=== PATIENT | male | born 1985 | race Caucasian/White ===

== ENCOUNTER 2018-04-08 08:26 | Emergency (ER) | payer MEDICARE, MEDICAID ==
[~2018-04-08] VITALS: Ht 188 cm; Wt 87.1 kg
[~2018-04-08 08:26] MED LIST: CHLO10MO PO; DIPH-423 PO; HYDR28.33 TP; IBUP-1051 PO
[2018-04-08 08:30] VITALS: BP 130/86
[2018-04-08] MEDS ORDERED: HYDROcodone/acetaminophen 10/325mg tab PO ONE (09:35)
[2018-04-08] MEDS ORDERED: TRAM50TA2 PO (09:55)
== END 2018-04-08 11:06 | disposition home or self-care (01) ==
LOC: ER 08:27
DX: S62.011A Displaced fracture of distal pole of navicular [scaphoid] bone of right wrist, initial encounter for closed fracture (principal); S62.316A Displaced fracture of base of fifth metacarpal bone, right hand, initial encounter for closed fracture; J45.909 Unspecified asthma, uncomplicated; K21.9 Gastro-esophageal reflux disease without esophagitis; F12.90 Cannabis use, unspecified, uncomplicated; F15.90 Other stimulant use, unspecified, uncomplicated; Z56.0 Unemployment, unspecified; Z59.0 Homelessness; Z98.890 Other specified postprocedural states; Z88.1 Allergy status to other antibiotic agents; Z88.5 Allergy status to narcotic agent; Y04.0XXA Assault by unarmed brawl or fight, initial encounter; Y93.89 Activity, other specified; Y92.89 Other specified places as the place of occurrence of the external cause; Y99.9 Unspecified external cause status
CPT/HCPCS: 29125; 73110; 73130; 99284

== ENCOUNTER 2018-04-18 13:01 | Outpatient (CLI) | payer MEDICARE, MEDICAID ==
[2018-04-18 12:58] VITALS: BP 121/74
[~2018-04-18 13:01] MED LIST changes: +TRAM50TA2 PO
== END 2018-04-18 13:53 | disposition home or self-care (01) ==
LOC: ORTHO 13:01
PROVIDERS: ATTEND Nurse Practitioner Family
DX: S62.011A Displaced fracture of distal pole of navicular [scaphoid] bone of right wrist, initial encounter for closed fracture (principal); S62.316A Displaced fracture of base of fifth metacarpal bone, right hand, initial encounter for closed fracture; J45.909 Unspecified asthma, uncomplicated; F17.200 Nicotine dependence, unspecified, uncomplicated; Z98.890 Other specified postprocedural states; Z88.1 Allergy status to other antibiotic agents; Z88.5 Allergy status to narcotic agent; Y04.0XXA Assault by unarmed brawl or fight, initial encounter; Y93.89 Activity, other specified; Y92.89 Other specified places as the place of occurrence of the external cause; Y99.8 Other external cause status
CPT/HCPCS: 73110; 99213; A4590

== ENCOUNTER 2018-05-09 14:21 | Outpatient (CLI) | payer MEDICARE, MEDICAID ==
[2018-05-09 14:20] VITALS: BP 129/73
== END 2018-05-09 14:52 | disposition home or self-care (01) ==
LOC: ORTHO 14:21
PROVIDERS: ATTEND Nurse Practitioner Family
DX: S62.011D Displaced fracture of distal pole of navicular [scaphoid] bone of right wrist, subsequent encounter for fracture with routine healing (principal); J45.909 Unspecified asthma, uncomplicated; K21.9 Gastro-esophageal reflux disease without esophagitis; G20 Parkinson's disease; F17.200 Nicotine dependence, unspecified, uncomplicated; Z88.1 Allergy status to other antibiotic agents; Z88.5 Allergy status to narcotic agent
CPT/HCPCS: 73110; G0463; 99213

== ENCOUNTER 2018-05-30 10:48 | Outpatient (CLI) | payer MEDICARE, MEDICAID ==
[~2018-05-30 10:48] MED LIST changes: -TRAM50TA2 PO
[2018-05-30 10:55] VITALS: BP 130/86
== END 2018-05-30 11:35 | disposition home or self-care (01) ==
LOC: ORTHO 10:48
PROVIDERS: ATTEND Nurse Practitioner Family
DX: S62.011 Displaced fracture of distal pole of navicular [scaphoid] bone of right wrist (principal); J45.909 Unspecified asthma, uncomplicated; K21.9 Gastro-esophageal reflux disease without esophagitis; G20 Parkinson's disease; F17.200 Nicotine dependence, unspecified, uncomplicated; Z88.1 Allergy status to other antibiotic agents; Z88.5 Allergy status to narcotic agent; Z59.0 Homelessness; Z56.0 Unemployment, unspecified; F12.90 Cannabis use, unspecified, uncomplicated; F17.210 Nicotine dependence, cigarettes, uncomplicated; Y04.0XXD Assault by unarmed brawl or fight, subsequent encounter
CPT/HCPCS: 73110; 99213

== ENCOUNTER 2018-06-27 12:58 | Outpatient (CLI) | payer MEDICARE, MEDICAID ==
[2018-06-27 12:57] VITALS: BP 130/79
== END 2018-06-27 13:32 | disposition home or self-care (01) ==
LOC: ORTHO 12:58
PROVIDERS: ATTEND Nurse Practitioner Family
DX: S62.011 Displaced fracture of distal pole of navicular [scaphoid] bone of right wrist (principal); J45.909 Unspecified asthma, uncomplicated; G40.89 Other seizures; G20 Parkinson's disease; K21.9 Gastro-esophageal reflux disease without esophagitis; F41.8 Other specified anxiety disorders; F17.210 Nicotine dependence, cigarettes, uncomplicated; Z88.1 Allergy status to other antibiotic agents; Z88.5 Allergy status to narcotic agent; Y04.0XXD Assault by unarmed brawl or fight, subsequent encounter
CPT/HCPCS: 99213

== ENCOUNTER 2018-08-21 15:04 | Outpatient (CLI) | payer MEDICARE, MEDICAID | END 2018-08-21 16:15 | disposition home or self-care (01) | LOC: ORTHO 15:04 | PROVIDERS: ATTEND Orthopaedic Surgery | DX: S62.011 Displaced fracture of distal pole of navicular [scaphoid] bone of right wrist (principal); X58.XXXD Exposure to other specified factors, subsequent encounter | CPT/HCPCS: 73110; 99213 ==

== ENCOUNTER 2018-10-20 12:45 | Emergency (ER) | payer MEDICARE, MEDICAID ==
[~2018-10-20] VITALS: Ht 188 cm; Wt 72.0 kg
[2018-10-20 13:04] VITALS: BP 118/67
== END 2018-10-20 15:27 | disposition home or self-care (01) ==
LOC: ER 12:45
DX: S21.119A Laceration without foreign body of unspecified front wall of thorax without penetration into thoracic cavity, initial encounter (principal); J45.909 Unspecified asthma, uncomplicated; K21.9 Gastro-esophageal reflux disease without esophagitis; F41.9 Anxiety disorder, unspecified; F32.9 Major depressive disorder, single episode, unspecified; F20.9 Schizophrenia, unspecified; F12.90 Cannabis use, unspecified, uncomplicated; Z86.14 Personal history of Methicillin resistant Staphylococcus aureus infection; Z98.890 Other specified postprocedural states; Z88.5 Allergy status to narcotic agent; Z88.1 Allergy status to other antibiotic agents; Z79.899 Other long term (current) drug therapy; Z59.0 Homelessness; Z56.0 Unemployment, unspecified; X58.XXXA Exposure to other specified factors, initial encounter; Y93.89 Activity, other specified; Y92.89 Other specified places as the place of occurrence of the external cause; Y99.8 Other external cause status
CPT/HCPCS: 71046; 99283

== ENCOUNTER 2019-08-01 17:20 | Emergency (ER) | payer MEDICARE, MEDICAID ==
[~2019-08-01] VITALS: Ht 188 cm; Wt 71.5 kg
[2019-08-01 19:00] LABS: BASOPHILS # (AUTO) 0.1 X10'3 (0-0.2); BASOPHILS % (AUTO) 0.9 % (0-1); EOSINOPHILS # (AUTO) 0.2 X10'3 (0-0.9); HEMATOCRIT 47.8 % (42.0-52.0); HEMOGLOBIN 16.2 g/dl (14.0-17.9); LYMPHOCYTES # (AUTO) 3.2 X10'3 (1.1-4.8); LYMPHOCYTES % (AUTO) 27.8 % (21-51); MEAN CORPUSCULAR HEMOGLOBIN 32.3 PG (27.0-31.0); MEAN CORPUSCULAR HGB CONC 33.9 g/dL (33.0-36.5); MEAN CORPUSCULAR VOLUME 95.3 FL (78-98); MEAN PLATELET VOLUME 6.8 FL (7.4-10.4); MONOCYTES # (AUTO) 1.2 X10'3 (0-0.9); MONOCYTES % (AUTO) 10.2 % (2-12); NEUTROPHILS # (AUTO) 6.8 X10'3 (1.8-7.7); NEUTROPHILS % (AUTO) 59.1 % (42-75); PLATELET COUNT 413 X10'3 (140-440); RED BLOOD COUNT 5.02 X10'6 (4.70-6.10); RED CELL DISTRIBUTION WIDTH 13.4 % (11.5-14.5); WHITE BLOOD COUNT 11.6 X10'3 (4.5-11.0)
[2019-08-01 19:16] LABS: ALANINE AMINOTRANSFERASE 32 U/L (12-78); ALBUMIN 4.6 G/DL (3.4-5.0); ALKALINE PHOSPHATASE 112 IU/L (46-116); ANION GAP 10 (8-16); ASPARTATE AMINO TRANSFERASE 34 U/L (10-37); BILIRUBIN,TOTAL 0.3 MG/DL (0.1-1.0); BLOOD UREA NITROGEN 41 MG/DL (7-18); BUN/CREATININE RATIO 23.6 (5.4-32.0); CALCIUM 9.5 MG/DL (8.5-10.1); CHLORIDE 99 MMOL/L (99-107); CREATININE 1.74 MG/DL (0.60-1.10); GLUCOSE 114 MG/DL (70-104); POTASSIUM 3.9 MMOL/L (3.5-5.1); SODIUM 133 MMOL/L (135-145); TOTAL CARBON DIOXIDE 23.8 MMOL/L (24-32); eGFR 45 ML/MIN
[2019-08-01 19:17] LABS: ETHANOL < 0.010 GM/DL (0.0-0.010)
[2019-08-01] MEDS ORDERED: normal saline 1000ML IV soln IVB ONE ×2 (19:25→19:40)
[2019-08-01 20:15] LABS: URINE AMPHETAMINE SCREEN POSITIVE (Neg); URINE BARBITUATE SCREEN NEGATIVE (Neg); URINE BENZODIAZEPINES SCREEN NEGATIVE (Neg); URINE CANNABINOID SCREEN POSITIVE (Neg); URINE COCAINE SCREEN NEGATIVE (Neg); URINE METHADONE SCREEN NEGATIVE (Neg); URINE OPIATE SCREEN NEGATIVE (Neg); URINE PHENCYCLIDINE SCREEN NEGATIVE (Neg)
[2019-08-01] MEDS ORDERED: NO HOME MEDS (20:22)
--- NOTE | 2019-08-01 20:25 | NUR ---
pt packet faxed to [facility]
--- NOTE | 2019-08-01 21:04 | NUR ---
Patient resting in bed. No apparent s/s of distress noted. Awaiting evaluation by [facility]
[2019-08-01] MEDS ORDERED: nicotine 21mg patch - 24 hr TD ONE (22:10)
--- NOTE | 2019-08-01 22:23 | NUR ---
Informed by [facility] that patient will be placed on 5150 hold. Patient currently resting in bed after eating another snack and having nicotine patch placed.
--- NOTE | 2019-08-01 23:30 | NUR ---
Patient appears to be resting comfortably. No apparent s/s of distress noted
--- NOTE | 2019-08-02 01:00 | NUR ---
Pt appears to be resting comfortably. No apparent s/s of distress noted
--- NOTE | 2019-08-02 02:59 | NUR ---
Pt appears to be resting comfortably. No apparent s/s of distress noted
--- NOTE | 2019-08-02 06:08 | NUR ---
Pt appears to be resting comfortably. No apparent s/s of distress noted
--- NOTE | 2019-08-02 06:19 | NUR ---
asleep latyinh on his right side rspirations unlabored
--- NOTE | 2019-08-02 07:07 | NUR ---
patient laying on his back sleeping
--- NOTE | 2019-08-02 07:52 | NUR ---
is up and eating breakast
--- NOTE | 2019-08-02 08:06 | NUR ---
patient using restroom closet to bed 26
--- NOTE | 2019-08-02 08:12 | NUR ---
patient is back in bed
[2019-08-02] MEDS: nicotine 21mg patch - 24 hr TD SCH (09:01)
--- NOTE | 2019-08-02 09:02 | NUR ---
laying in bed awake
--- NOTE | 2019-08-02 09:06 | NUR ---
primary RN was sent on a rest break. Pt is asking for a cigarette, he was advised that this is a no smoking hospital.
--- NOTE | 2019-08-02 09:22 | NUR ---
new nicotine patch placed old one removed
--- NOTE | 2019-08-02 10:01 | NUR ---
patient sleeping on left side
--- NOTE | 2019-08-02 11:01 | NUR ---
patient using the restroom
--- NOTE | 2019-08-02 12:04 | NUR ---
asleep on his left side
--- NOTE | 2019-08-02 14:06 | NUR ---
eating saltine crackers in bed
[2019-08-02] MEDS ORDERED: LORazepam 2 mg/ml vial IM ONE (14:25)
--- NOTE | 2019-08-02 14:35 | NUR ---
About 5-10 minutes ago patient became agitated due to the fact that he is not allowed to have his cell phone. Security was called for standby and Rachel STONE was called who ordered 2mg Ativan IM. Secnic and the charge Nurse Leida came. Leida RN said have the Ativan on hold give it if the patient starts acting up again. Patient has calmed down or is not yelling anymore. I notified the [facility] mental health worker that patient was making homicidial statement, to which he let me know he was aware he has made these statements.
--- NOTE | 2019-08-02 14:43 | NUR ---
Patient took his wrist band off and said, "I'm taking my wristband off cause I don't want it." I put his wristband in his chart and tapped it to the front.
--- NOTE | 2019-08-02 15:09 | NUR ---
Patient resting in bed said to wake him up for dinner.
--- NOTE | 2019-08-02 15:15 | NUR ---
Patient willing to take ativan that was ordered for him. Patient let me give ativan shot to him.
--- NOTE | 2019-08-02 16:31 | NUR ---
patient is sleeping laying on back
--- NOTE | 2019-08-02 17:04 | NUR ---
Patient is asleep laying on back
--- NOTE | 2019-08-02 18:15 | NUR ---
Patient asleep laying on back
--- NOTE | 2019-08-03 07:52 | NUR ---
PT SITTING UP IN BED EATING BREAKFAST
[2019-08-03] MEDS: nicotine 21mg patch - 24 hr TD SCH (08:00)
[2019-08-03] MEDS ORDERED: LORazepam 1 MG tablet PO ONE (09:25)
[2019-08-03 10:26] VITALS: BP 121/69
== END 2019-08-03 10:28 ==
LOC: ER 17:20
DX: R45.850 Homicidal ideations (principal); N17.9 Acute kidney failure, unspecified; F15.10 Other stimulant abuse, uncomplicated; E86.0 Dehydration; J45.909 Unspecified asthma, uncomplicated; K21.9 Gastro-esophageal reflux disease without esophagitis; F41.9 Anxiety disorder, unspecified; F32.9 Major depressive disorder, single episode, unspecified; F20.9 Schizophrenia, unspecified; F12.90 Cannabis use, unspecified, uncomplicated; Z86.69 Personal history of other diseases of the nervous system and sense organs; Z86.14 Personal history of Methicillin resistant Staphylococcus aureus infection; Z98.890 Other specified postprocedural states; Z59.0 Homelessness; Z56.0 Unemployment, unspecified; Z88.0 Allergy status to penicillin; Z88.5 Allergy status to narcotic agent
CPT/HCPCS: 36415; 80053; 80305; 80320; 85025; 96372; 99285; J2060; J7030

== ENCOUNTER 2019-08-03 09:39 | Inpatient (IN) | payer MEDICARE, MEDICAID ==
[~2019-08-03] VITALS: Ht 188 cm; Wt 72.0 kg
[~2019-08-03 09:39] MED LIST changes: -CHLO10MO PO; -DIPH-423 PO; -HYDR28.33 TP; -IBUP-1051 PO; +NO HOME MEDS
[2019-08-03] MEDS ORDERED: acetaminophen 325mg tablet PO PRN ×2 (10:30)
[2019-08-03] MEDS ORDERED: magnesium hydroxide 30ml (MOM) UD suspension PO PRN (10:30)
[2019-08-03] MEDS ORDERED: diphenhydrAMINE 25mg capsule PO PRN (10:30)
[2019-08-03] MEDS ORDERED: LORazepam 1 MG tablet PO PRN (10:30)
[2019-08-03] MEDS ORDERED: hydrOXYzine 25 MG tablet PO PRN (10:30)
[2019-08-03] MEDS ORDERED: mag hydrox/Alum hydrox/simeth 30ml oral suspension PO PRN (10:30)
[2019-08-03] MEDS ORDERED: loperamide 2mg capsule PO PRN (10:30)
[2019-08-03] MEDS ORDERED: haloperidol 5mg tablet PO PRN (10:30)
[2019-08-03 10:48] VITALS: BP 126/75
--- NOTE | 2019-08-03 12:04 | NUR ---
Pt. transferred from ER to [facility] escorted by security guards and tech. Pt. self-presented to ED stating he wanted to harm "other people". Pt.' toxicology + for amphetamines and THC. Pt. reports using THC and meth 07/30. Pt. reportedly stated, "I have access to a gun. They're gonna push me to the edge!" skin check done and belongings inventoried. Pt. showered. right toe wound documented and photographed and in chart. During interview pt. was restless and easily distracted, asking for food, coffee, and his cell phone and clothes. Pt. explained rules of unit. Pt. is hyperverbal with pressured speech. Pt. states, "I needed to come here because I was losing it. People were out to get me, I was losing my mind, I had to get my thoughts back in order". Pt. doing meth kandi day and drinking ETOH and smoking pot every evening to relax him and so he can sleep. Pt. reports his last drank. a 5ht of whiskey on July 30. Pt. denies withdrawal symptoms, denies hx of black out, DTs. Pt. reports meth cravings. 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 Addendum: 08/03/19 at 1705 by Brigido Mello RN Pt. has medical hx of asthma, Epilepsy, Parkinsons, depression, anxiety, Lupus, DD, intermittent explosive d/o.
[2019-08-03] MEDS ORDERED: diphenhydrAMINE 50 mg/ml inj ONE (13:07)
[2019-08-03] MEDS ORDERED: LORazepam 2 mg/ml vial ONE (13:07)
[2019-08-03] MEDS ORDERED: haloperidol lactate 5mg/ml inj ONE (13:07)
--- NOTE | 2019-08-03 13:42 | NUR ---
B52: Pt requested his clothing. Andrei Sotelo explained his clothing was in the wash and the rest of his belongings locked up. Pt upset that his underwear were new and pt escalating and threatening "The last agueda that touched my stuff I broke his fingers". PT told to go to his room and calm down. PT continues to threaten and scare the patients. Security arrives and pt is out of control. PT refuses to take the oral B52. Pt continues to yell and curse and threaten to blow the building up and "Im a trained fighter." Pt posturing in fighting stance. After much discussion and deescalating attempts pt shown the syringe with IM B52, pt took his oral B52. Pt continues to argue with staff and threaten and demand to go to [facility]. Pt eventually calms down and apologizes.
--- NOTE | 2019-08-03 18:59 | NUR ---
Client arrived on unit at 10:30.
[2019-08-03 20:00] VITALS: BP 109/64
--- NOTE | 2019-08-04 04:29 | NUR ---
Nursing Progress Note: Legal hold: 5150 Client on voluntary DTS/DTO Report received from nurse with use of SBAR: BLADIMIR Holt Why are they here: Pt. transferred from ER to [facility] escorted by security guards and tech. Pt. self-presented to ED stating he wanted to harm "other people". Pt.' toxicology + for amphetamines and THC. Pt. reports using THC and meth 07/30. Pt. reportedly stated, "I have access to a gun. They're gonna push me to the edge!" skin check done and belongings inventoried. Pt. showered. right toe wound documented and photographed and in chart. During interview pt. was restless and easily distracted, asking for food, coffee, and his cell phone and clothes. Pt. explained rules of unit. Pt. is hyperverbal with pressured speech. Pt. states, "I needed to come here because I was losing it. People were out to get me, I was losing my mind, I had to get my thoughts back in order". Pt. doing meth kandi day and drinking ETOH and smoking pot every evening to relax him and so he can sleep. Pt. reports his last drank. a 5ht of whiskey on July 30. Pt. denies withdrawal symptoms, denies hx of black out, DTs. Pt. reports meth cravings. 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 Pt. has medical hx of asthma, Epilepsy, Parkinsons, depression, anxiety, Lupus, DD, intermittent explosive d/o. Assessment What has happened this shift: Patient laying in bed at the beginning of shift; momentarily visible on the unit before returning back to bed. PCT originally reported difficulty waking patient for VS and later in the shift patient cooperative with comic writer for VS. While assessing patient he nodded off to sleep several times during conversation. He denies SI, HI, A/VH. Reports discharge plan is to go back under a bridge. Patient has no schedule medications at this time and no PRNs needed. No outbursts or expressions of agitation this shift. Upon comic writer leaving his room patient stated, "you have a nice ass." No other comments of the sort the remainder of shift. No threats toward others made this shift. S/I, H/I: Denies A/VH: Denies Sleep: Refer to sleep assessment; patient falling asleep between conversation Group attendance: No groups this shift Were meds taken: No scheduled meds this shift, No PRNs needed Any med S/E: N/A Mental Status Exam Appearance: Clean, green unit scrubs Eye contact: Fair Behavior: Cooperative, isolative to self Speech: Soft, clear, steady rate/rhythm Mood: Fatigued Affect: Constricted Thought process: Poverty of thought Thought Content: Sleeping Cognition: A/O Insight: Poor Judgment: Poor Interventions PRN's used: None Therapeutic interventions: Ensured contract for safety, maintained a safe and therapeutic environment, provided clear and simple instructions, provided active listening and positive encouragement, monitored behavior and need for intervention, provided medication and substance abuse education, and maintained Q 15 min safety checks. Restraints/seclusion/emergency medication: N/A Justification of Continued Inpatient Treatment: To ensure stabilization so that patient may d/c safely and decrease possibility of readmission.
[2019-08-04] MEDS: NICOTINE POLACRILEX 2 MG LOZENGE BC PRN ×5 (07:40→19:25)
[2019-08-04 08:00] VITALS: BP 115/61
[2019-08-04] MEDS: nicotine 21mg patch - 24 hr TD SCH (08:00)
[2019-08-04 08:14] LABS: CHOL/HDL RATIO 4.4 (0.00-4.99); CHOLESTEROL 184 MG/DL (0-200); HDL CHOLESTEROL 42 MG/DL (35-60); LDL CHOLESTEROL 115 MG/DL (50-100); TRIGLYCERIDES 165 MG/DL (20-135)
[2019-08-04 08:17] LABS: HEMOGLOBIN A1C 5.5 % (4.5-6.2)
--- NOTE | 2019-08-04 18:27 | NUR ---
Nursing Progress Note: Legal hold: 5150 Client on voluntary DTS/DTO Report received from nurse with use of SBAR: Eileen RN Why are they here: Pt. transferred from ER to [facility] escorted by security guards and tech. Pt. self-presented to ED stating he wanted to harm "other people". Pt.' toxicology + for amphetamines and THC. Pt. reports using THC and meth 07/30. Pt. reportedly stated, "I have access to a gun. They're gonna push me to the edge!" skin check done and belongings inventoried. Pt. showered. right toe wound documented and photographed and in chart. During interview pt. was restless and easily distracted, asking for food, coffee, and his cell phone and clothes. Pt. explained rules of unit. Pt. is hyperverbal with pressured speech. Pt. states, "I needed to come here because I was losing it. People were out to get me, I was losing my mind, I had to get my thoughts back in order". Pt. doing meth kandi day and drinking ETOH and smoking pot every evening to relax him and so he can sleep. Pt. reports his last drank. a 5ht of whiskey on July 30. Pt. denies withdrawal symptoms, denies hx of black out, DTs. Pt. reports meth cravings. 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 Pt. has medical hx of asthma, Epilepsy, Parkinsons, depression, anxiety, Lupus, DD, intermittent explosive d/o. Assessment What has happened this shift: Received pt awake in the garcia. Pt visible most of the day milling around unit interacting with staff and peers. Pt was flirting at times with female pts and female staff and required refocusing. Pt denies suicidal ideation and denies depression. Pt denies auditory hallucinations. Pt just kept talking about leaving in two days. Pt behavior remained appropriate today. S/I, H/I: Denies A/VH: Denies Sleep: no naps today Group attendance: corn hole with peers Were meds taken: No scheduled meds this shift, No PRNs needed Any med S/E: N/A Mental Status Exam Appearance: Clean, green unit scrubs Eye contact: Fair Behavior: Cooperative, isolative to self Speech: Soft, clear, steady rate/rhythm Mood: Fatigued Affect: Constricted Thought process: Poverty of thought Thought Content: on discharge Cognition: A/O Insight: Poor Judgment: Poor Interventions PRN's used: nicotine lozenge Therapeutic interventions: Ensured contract for safety, maintained a safe and therapeutic environment, provided clear and simple instructions, provided active listening and positive encouragement, monitored behavior and need for intervention, provided medication and substance abuse education, and maintained Q 15 min safety checks. Restraints/seclusion/emergency medication: N/A Justification of Continued Inpatient Treatment: To ensure stabilization so that patient may d/c safely and decrease possibility of readmission.
[2019-08-04 20:00] VITALS: BP 104/65
[2019-08-04] MEDS: traZODone 50mg tablet PO PRN (20:25)
--- NOTE | 2019-08-05 00:37 | NUR ---
Nursing Progress Note: Legal hold: 5150 Client on voluntary DTS/DTO Report received from nurse with use of SBAR: BLADIMIR Holt Why are they here: Pt. transferred from ER to [facility] escorted by security guards and tech. Pt. self-presented to ED stating he wanted to harm "other people". Pt.' toxicology + for amphetamines and THC. Pt. reports using THC and meth 07/30. Pt. reportedly stated, "I have access to a gun. They're gonna push me to the edge!" skin check done and belongings inventoried. Pt. showered. right toe wound documented and photographed and in chart. During interview pt. was restless and easily distracted, asking for food, coffee, and his cell phone and clothes. Pt. explained rules of unit. Pt. is hyperverbal with pressured speech. Pt. states, "I needed to come here because I was losing it. People were out to get me, I was losing my mind, I had to get my thoughts back in order". Pt. doing meth kandi day and drinking ETOH and smoking pot every evening to relax him and so he can sleep. Pt. reports his last drank. a 5ht of whiskey on July 30. Pt. denies withdrawal symptoms, denies hx of black out, DTs. Pt. reports meth cravings. 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 Pt. has medical hx of asthma, Epilepsy, Parkinsons, depression, anxiety, Lupus, DD, intermittent explosive d/o. Assessment What has happened this shift: Patient in the garcia at change of shift and requested a shower. After shower pt went to rec room and watched tv till snack and meds. Pt asked for something to help with sleep. Pt given prn Trazodone that was helpful. S/I, H/I: Denies A/VH: Denies Sleep: no naps today Group attendance: corn hole with peers Were meds taken: No scheduled meds this shift, No PRNs needed Any med S/E: N/A Mental Status Exam Appearance: Clean, green unit scrubs Eye contact: Fair Behavior: Cooperative, isolative to self Speech: Soft, clear, steady rate/rhythm Mood: Fatigued Affect: Constricted Thought process: Poverty of thought Thought Content: on discharge Cognition: A/O Insight: Poor Judgment: Poor Interventions PRN's used: nicotine lozenge , Trazodone Therapeutic interventions: Ensured contract for safety, maintained a safe and therapeutic environment, provided clear and simple instructions, provided active listening and positive encouragement, monitored behavior and need for intervention, provided medication and substance abuse education, and maintained Q 15 min safety checks. Restraints/seclusion/emergency medication: N/A Justification of Continued Inpatient Treatment: To ensure stabilization so that patient may d/c safely and decrease possibility of readmission.
[2019-08-05] MEDS: NICOTINE POLACRILEX 2 MG LOZENGE BC PRN (05:46)
[2019-08-05 08:00] VITALS: BP 106/64
[2019-08-05] MEDS: nicotine 21mg patch - 24 hr TD SCH (08:00)
--- NOTE | 2019-08-05 11:41 | NUR ---
PSYCHOSOCIAL ASSESSMENT Andrea is a 34 y/o single male who was placed on 5150 for danger to self and others. He self presented to the ED with thoughts of killing others and himself with a gun. Andrea stated to feature writer, "I lost my mind...people were chasing me...I was on drugs". He reported he used meth the day before he came to the ED. He denied any current suicidal or homicidal ideation, intent, or plan, "I love myself". He would not disclose who he wanted to kill. He reported he feels safe to leave the hospital and return to the streets. He was goal directed and future oriented in that he plans on finding housing once he gets his stimulus check. Andrea reported he completed drug and alcohol treatment a couple years ago through [facility]. He reported he would be willing to go to treatment again, however, made it clear he has no intention of abstaining from drugs and alcohol, "I don't want to quit". Andrea reported he was hospitalized one other time in [place] 11 years ago. He currently does not have a mental health provider. He reported he would like to go to counseling again. Music Director will refer him to [facility] for counseling. CAROLYN Mathew Addendum: 08/05/19 at 1143 by Anneliese Fragoso Amended: Links added.
--- NOTE | 2019-08-05 15:10 | NUR ---
Nursing Progress Note: Legal hold: 5150 Client on voluntary DTS/DTO Report received from nurse with use of SBAR: BLADIMIR Bal Why are they here: Pt. transferred from ER to [facility] escorted by security guards and tech. Pt. self-presented to ED stating he wanted to harm "other people". Pt.' toxicology + for amphetamines and THC. Pt. reports using THC and meth 07/30. Pt. reportedly stated, "I have access to a gun. They're gonna push me to the edge!" skin check done and belongings inventoried. Pt. showered. right toe wound documented and photographed and in chart. During interview pt. was restless and easily distracted, asking for food, coffee, and his cell phone and clothes. Pt. explained rules of unit. Pt. is hyperverbal with pressured speech. Pt. states, "I needed to come here because I was losing it. People were out to get me, I was losing my mind, I had to get my thoughts back in order". Pt. doing meth knadi day and drinking ETOH and smoking pot every evening to relax him and so he can sleep. Pt. reports his last drank. a 5ht of whiskey on July 30. Pt. denies withdrawal symptoms, denies hx of black out, DTs. Pt. reports meth cravings. 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 Pt. has medical hx of asthma, Epilepsy, Parkinsons, depression, anxiety, Lupus, DD, intermittent explosive d/o. Assessment What has happened this shift: Received pt awake in the garcia. Pt visible most of the day milling around unit interacting with staff and peers. Pt denies suicidal ideation and denies depression. Pt denies homicidal ideation. Pt denies auditory hallucinations. Pt just kept talking about leaving in tomorrow. Pt initiated playing [employer] with staff and playing Connect [employer] with peer. Pt behavior remained appropriate today. S/I, H/I: Denies A/VH: Denies Sleep: no naps today Group attendance: n/a, games with staff and peers Were meds taken: No scheduled meds this shift, No PRNs needed Any med S/E: N/A Mental Status Exam Appearance: Clean, green unit scrubs Eye contact: Fair Behavior: Cooperative, isolative to self Speech: Soft, clear, steady rate/rhythm Mood: Fatigued Affect: Constricted Thought process: Poverty of thought Thought Content: on discharge Cognition: A/O Insight: Poor Judgment: Poor Interventions PRN's used: nicotine lozenge Therapeutic interventions: Ensured contract for safety, maintained a safe and therapeutic environment, provided clear and simple instructions, provided active listening and positive encouragement, monitored behavior and need for intervention, provided medication and substance abuse education, and maintained Q 15 min safety checks. Restraints/seclusion/emergency medication: N/A Justification of Continued Inpatient Treatment: To ensure stabilization so that patient may d/c safely and decrease possibility of readmission.
[2019-08-05 20:00] VITALS: BP 153/91
[2019-08-05] MEDS: traZODone 50mg tablet PO PRN (20:22)
--- NOTE | 2019-08-05 23:25 | NUR ---
Nursing Progress Note: Legal hold: 5150 Client on voluntary DTS/DTO Report received from nurse with use of SBAR: BLADIMIR Holt Why are they here: Pt. transferred from ER to [facility] escorted by security guards and tech. Pt. self-presented to ED stating he wanted to harm "other people". Pt.' toxicology + for amphetamines and THC. Pt. reports using THC and meth 07/30. Pt. reportedly stated, "I have access to a gun. They're gonna push me to the edge!" skin check done and belongings inventoried. Pt. showered. right toe wound documented and photographed and in chart. During interview pt. was restless and easily distracted, asking for food, coffee, and his cell phone and clothes. Pt. explained rules of unit. Pt. is hyperverbal with pressured speech. Pt. states, "I needed to come here because I was losing it. People were out to get me, I was losing my mind, I had to get my thoughts back in order". Pt. doing meth kandi day and drinking ETOH and smoking pot every evening to relax him and so he can sleep. Pt. reports his last drank. a 5ht of whiskey on July 30. Pt. denies withdrawal symptoms, denies hx of black out, DTs. Pt. reports meth cravings. 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 Pt. has medical hx of asthma, Epilepsy, Parkinsons, depression, anxiety, Lupus, DD, intermittent explosive d/o. Assessment What has happened this shift: Patient up and in rec room watching tv with peers at start of shift. He would pace the garcia and was social with peers. He told this process description writer that he is D/C tomorrow and feels he is ready. He states he wished he had a home to go to instead of the streets. S/I, H/I: Denies A/VH: Denies Sleep: no naps today Group attendance: n/a, games with staff and peers Were meds taken: No scheduled meds this shift, No PRNs needed Any med S/E: N/A Mental Status Exam Appearance: Clean, green unit scrubs Eye contact: Fair Behavior: Cooperative, isolative to self Speech: Soft, clear, steady rate/rhythm Mood: Fatigued Affect: Constricted Thought process: Poverty of thought Thought Content: on discharge Cognition: A/O Insight: Poor Judgment: Poor Interventions PRN's used: Trasodone Therapeutic interventions: Ensured contract for safety, maintained a safe and therapeutic environment, provided clear and simple instructions, provided active listening and positive encouragement, monitored behavior and need for intervention, provided medication and substance abuse education, and maintained Q 15 min safety checks. Restraints/seclusion/emergency medication: N/A Justification of Continued Inpatient Treatment: To ensure stabilization so that patient may d/c safely and decrease possibility of readmission.
[2019-08-06 07:00] VITALS: BP 115/75
[2019-08-06] MEDS: nicotine 21mg patch - 24 hr TD SCH (07:40)
[2019-08-06] MEDS ORDERED: TRAZ-251 PO ×2 (09:44→18:23)
[2019-08-06] MEDS ORDERED: HYDR-3686 PO ×2 (09:44→18:23)
--- NOTE | 2019-08-06 10:05 | NUR ---
DISCHARGE NOTE: Patient is discharged with belongings, discharge instructions. Medications called into [address] Patient denies SI. States that he is going to continue smoking and refuses nicotine replacement. Patient is escorted downstairs and security was to release his knife and escort him outside. Patient discharged in stable condition.
== END 2019-08-06 10:11 | disposition home or self-care (01) | DRG 897 ==
LOC: ADULT MH 09:39
PROVIDERS: ADMIT Psychiatry & Neurology Psychiatry; ATTEND Psychiatry & Neurology Psychiatry
DX: F15.159 Other stimulant abuse with stimulant-induced psychotic disorder, unspecified (principal); R45.851 Suicidal ideations; F10.20 Alcohol dependence, uncomplicated; F12.90 Cannabis use, unspecified, uncomplicated; F20.9 Schizophrenia, unspecified; J45.909 Unspecified asthma, uncomplicated; R45.850 Homicidal ideations; Z59.0 Homelessness; Z87.891 Personal history of nicotine dependence; R56.9 Unspecified convulsions
CPT/HCPCS: 36415; 80053; 80061; 80305; 80320; 83036; 85025; 87081; J1200; J1630; J2060

== ENCOUNTER 2019-08-06 17:21 | Emergency (ER) | payer MEDICARE, MEDICAID ==
[~2019-08-06] VITALS: Ht 188 cm; Wt 72.0 kg
[~2019-08-06 17:21] MED LIST changes: +HYDR-3686 PO; +TRAZ-251 PO
[2019-08-06 17:52] LABS: BASOPHILS # (AUTO) 0.1 X10'3 (0-0.2); BASOPHILS % (AUTO) 0.3 % (0-1); EOSINOPHILS # (AUTO) 0.1 X10'3 (0-0.9); EOSINOPHILS % (AUTO) 0.3 % (0-6); HEMOGLOBIN 14.4 g/dl (14.0-17.9); LYMPHOCYTES # (AUTO) 1.9 X10'3 (1.1-4.8); LYMPHOCYTES % (AUTO) 9.5 % (21-51); MEAN CORPUSCULAR HGB CONC 34.3 g/dL (33.0-36.5); MEAN CORPUSCULAR VOLUME 93.3 FL (78-98); MEAN PLATELET VOLUME 7.2 FL (7.4-10.4); MONOCYTES # (AUTO) 1.2 X10'3 (0-0.9); MONOCYTES % (AUTO) 6.3 % (2-12); NEUTROPHILS # (AUTO) 16.6 X10'3 (1.8-7.7); NEUTROPHILS % (AUTO) 83.6 % (42-75); PLATELET COUNT 395 X10'3 (140-440); RED CELL DISTRIBUTION WIDTH 13.3 % (11.5-14.5); WHITE BLOOD COUNT 19.8 X10'3 (4.5-11.0)
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
[2019-08-06 18:03] LABS: ALANINE AMINOTRANSFERASE 30 U/L (12-78); ALBUMIN 4.4 G/DL (3.4-5.0); ALBUMIN/GLOBULIN RATIO 1.1 (1.1-1.5); ALKALINE PHOSPHATASE 96 IU/L (46-116); ANION GAP 8 (8-16); ASPARTATE AMINO TRANSFERASE 32 U/L (10-37); BILIRUBIN,TOTAL 0.2 MG/DL (0.1-1.0); BLOOD UREA NITROGEN 28 MG/DL (7-18); BUN/CREATININE RATIO 21.1 (5.4-32.0); CALCIUM 9.1 MG/DL (8.5-10.1); CHLORIDE 101 MMOL/L (99-107); CREATININE 1.33 MG/DL (0.60-1.10); GLUCOSE 106 MG/DL (70-104); POTASSIUM 3.8 MMOL/L (3.5-5.1); SODIUM 139 MMOL/L (135-145); TOTAL CARBON DIOXIDE 29.8 MMOL/L (24-32); TOTAL PROTEIN 8.4 G/DL (6.4-8.2); eGFR 62 ML/MIN
[2019-08-06] MEDS ORDERED: HYDR-3686 PO (18:23)
[2019-08-06] MEDS ORDERED: TRAZ-251 PO (18:23)
[2019-08-06 18:45] LABS: CLARITY,URINE SLIGHTLY CLOUDY (Clear); COLOR,URINE YELLOW (Yellow); GLUCOSE, URINE NEGATIVE (Neg); KETONES,URINE NEGATIVE (Neg); LEUKOCYTE ESTERASE ,URINE NEGATIVE (Neg); NITRITES, URINE NEGATIVE (Neg); OCCULT BLOOD,URINE SMALL (Neg); PH,URINE 5.5 (4.8-8.0); PROTEIN,URINE TRACE mg/dl (Neg); UROBILINOGEN,URINE 0.2 E.U/dL (0.2-1.0)
[2019-08-06] MEDS ORDERED: hydrOXYzine 25 MG tablet PO PRN (18:55)
[2019-08-06 19:05] LABS: UA COLLECTION TYPE CLN CATCH MIDSTREAM
[2019-08-06 19:07] LABS: BACTERIA,URINE NONE SEEN /HPF (Neg); RBC,URINE NONE SEEN /HPF (0-2); SQUAMOUS EPITHELIAL CELL,UR FEW /LPF (FEW); WBC,URINE 0-4 /HPF (0-4)
[2019-08-06 19:08] LABS: HYALINE CASTS >30 /LPF (NEGATIVE); RENAL CELLS, URINE MODERATE /HPF
[2019-08-06 19:10] LABS: URINE AMPHETAMINE SCREEN NEGATIVE (Neg); URINE BARBITUATE SCREEN NEGATIVE (Neg); URINE BENZODIAZEPINES SCREEN NEGATIVE (Neg); URINE CANNABINOID SCREEN POSITIVE (Neg); URINE COCAINE SCREEN NEGATIVE (Neg); URINE METHADONE SCREEN NEGATIVE (Neg); URINE OPIATE SCREEN NEGATIVE (Neg); URINE PHENCYCLIDINE SCREEN NEGATIVE (Neg)
--- NOTE | 2019-08-06 19:24 | NUR ---
packet to [facility]
--- NOTE | 2019-08-06 20:19 | NUR ---
Report to [facility]incian
[2019-08-06] MEDS ORDERED: traZODone 50mg tablet PO PRN (21:00)
[2019-08-06 21:56] VITALS: BP 121/85
== END 2019-08-06 22:01 | disposition home or self-care (01) ==
LOC: ER 17:21
DX: F20.9 Schizophrenia, unspecified (principal); R45.850 Homicidal ideations; F19.10 Other psychoactive substance abuse, uncomplicated; J45.909 Unspecified asthma, uncomplicated; K21.9 Gastro-esophageal reflux disease without esophagitis; F41.9 Anxiety disorder, unspecified; F32.9 Major depressive disorder, single episode, unspecified; F12.90 Cannabis use, unspecified, uncomplicated; Z86.69 Personal history of other diseases of the nervous system and sense organs; Z86.14 Personal history of Methicillin resistant Staphylococcus aureus infection; Z98.890 Other specified postprocedural states; Z72.89 Other problems related to lifestyle; Z59.0 Homelessness; Z56.0 Unemployment, unspecified
CPT/HCPCS: 36415; 80053; 80305; 80320; 81001; 85025; 99283

== ENCOUNTER 2021-05-27 07:40 | Emergency (ER) | payer BC, MEDICAID ==
[~2021-05-27] VITALS: Ht 190.5 cm; Wt 115.6 kg
[~2021-05-27 07:40] MED LIST changes: -NO HOME MEDS
[2021-05-27 07:43] VITALS: BP 125/86
== END 2021-05-27 08:31 | disposition left against medical advice (07) ==
LOC: ER 07:41
DX: Z00.8 Encounter for other general examination (principal); Z53.21 Procedure and treatment not carried out due to patient leaving prior to being seen by health care provider

== ENCOUNTER 2021-10-19 15:40 | Inpatient (IN) | payer BC, MEDICAID ==
[~2021-10-19] VITALS: Ht 190.5 cm; Wt 100.0 kg
[2021-10-19] MEDS ORDERED: bacitracin 15gm ointment TP ONE (21:05)
[2021-10-19 21:26] LABS: BASOPHILS # (AUTO) 0.1 X10'3 (0-0.2); BASOPHILS % (AUTO) 0.6 % (0-1); EOSINOPHILS # (AUTO) 0.4 X10'3 (0-0.9); HEMATOCRIT 42.7 % (42.0-52.0); HEMOGLOBIN 14.7 g/dl (14.0-17.9); LYMPHOCYTES # (AUTO) 2.3 X10'3 (1.1-4.8); LYMPHOCYTES % (AUTO) 21.2 % (21-51); MEAN CORPUSCULAR HEMOGLOBIN 30.2 PG (27.0-31.0); MEAN CORPUSCULAR HGB CONC 34.4 g/dL (33.0-36.5); MEAN CORPUSCULAR VOLUME 87.8 FL (78-98); MEAN PLATELET VOLUME 7.2 FL (7.4-10.4); MONOCYTES # (AUTO) 1.1 X10'3 (0-0.9); MONOCYTES % (AUTO) 9.9 % (2-12); NEUTROPHILS # (AUTO) 6.8 X10'3 (1.8-7.7); NEUTROPHILS % (AUTO) 64.3 % (42-75); PLATELET COUNT 382 X10'3 (140-440); RED BLOOD COUNT 4.86 X10'6 (4.70-6.10); RED CELL DISTRIBUTION WIDTH 13.4 % (11.5-14.5); WHITE BLOOD COUNT 10.7 X10'3 (4.5-11.0)
[2021-10-19 21:41] LABS: ALANINE AMINOTRANSFERASE 46 U/L (12-78); ALBUMIN 3.7 G/DL (3.4-5.0); ALBUMIN/GLOBULIN RATIO 0.9 (1.1-1.5); ALKALINE PHOSPHATASE 91 IU/L (46-116); ANION GAP 8 (8-16); ASPARTATE AMINO TRANSFERASE 52 U/L (10-37); BILIRUBIN,TOTAL 0.4 MG/DL (0.1-1.0); BLOOD UREA NITROGEN 19 MG/DL (7-18); BUN/CREATININE RATIO 19.2 (5.4-32.0); CALCIUM 9.3 MG/DL (8.5-10.1); CHLORIDE 100 MMOL/L (99-107); CREATININE 0.99 MG/DL (0.60-1.10); ETHANOL < 0.010 GM/DL (0.0-0.010); GLUCOSE 93 MG/DL (70-104); POTASSIUM 3.5 MMOL/L (3.5-5.1); SODIUM 137 MMOL/L (135-145); TOTAL CARBON DIOXIDE 28.9 MMOL/L (24-32); eGFR 86 ML/MIN
[2021-10-19 21:52] LABS: URINE AMPHETAMINE SCREEN POSITIVE (Neg); URINE BARBITUATE SCREEN NEGATIVE (Neg); URINE BENZODIAZEPINES SCREEN NEGATIVE (Neg); URINE CANNABINOID SCREEN POSITIVE (Neg); URINE COCAINE SCREEN NEGATIVE (Neg); URINE METHADONE SCREEN NEGATIVE (Neg); URINE OPIATE SCREEN NEGATIVE (Neg); URINE PHENCYCLIDINE SCREEN NEGATIVE (Neg)
[2021-10-20] MEDS ORDERED: NO HOME MEDS (00:09)
[2021-10-20] MEDS: acetaminophen 325mg tablet PO PRN ×2 (00:16→19:53)
--- NOTE | 2021-10-20 00:21 | NUR ---
Patient admitted from the [facility]. He appears very dirty, disheveled and has many scraps and cuts all over his body. He stated that he was released from senior care prior to coming to [facility]. He stated that [facility] brought him to the ER. He stated that he had been taking medications through parole but states he has been off medications for several months. He was hungry and tired. He reports SI to hang himself or find a gun. He denies psychotic symptoms. He reports homicidal thoughts and when asked toward to he stated, "any body" He was cooperative. His feet are very painful and tylenol was given. He did make the statement that he had 27 grandmal seizures yesterday. He is aware that he is on a psychiatric hold and will be evaluated tomorrow by [facility].
--- NOTE | 2021-10-20 00:29 | NUR ---
Packet sent to [facility]
--- NOTE | 2021-10-20 01:36 | NUR ---
The patient appears to be sleeping
--- NOTE | 2021-10-20 03:03 | NUR ---
The patient appears to be sleeping
--- NOTE | 2021-10-20 04:04 | NUR ---
The patient appears to be sleeping
--- NOTE | 2021-10-20 05:18 | NUR ---
The patient appears to be sleeping
--- NOTE | 2021-10-20 06:26 | NUR ---
Patient sleeping supine. RN observed patient re-adjusting. Continue to monitor.
--- NOTE | 2021-10-20 08:16 | NUR ---
Patient eating breakfast. No distress observed. Continue to monitor.
--- NOTE | 2021-10-20 09:35 | NUR ---
[facility], Alyssa, evaluating patient. No distress observed. Continue to monitor.
--- NOTE | 2021-10-20 10:20 | NUR ---
Patient placed on a 5150 Hold for DTS by [facility]. Patient notified. No distress observed. Continue to monitor.
--- NOTE | 2021-10-20 11:33 | NUR ---
Patient sleeping on right side. No distress observed. Continue to monitor.
[2021-10-20] MEDS: LIDOCAINE 5% OINTMENT 35GM TP SCH ×3 (12:40→18:17)
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
[2021-10-20] MEDS ORDERED: magnesium hydroxide 30ml (MOM) UD suspension PO PRN (16:35)
[2021-10-20] MEDS ORDERED: mag hydrox/Alum hydrox/simeth 30ml oral suspension PO PRN (16:35)
[2021-10-20] MEDS ORDERED: NICOTINE POLACRILEX 2 MG LOZENGE BC PRN (16:35)
[2021-10-20] MEDS ORDERED: loperamide 2mg capsule PO PRN (16:35)
[2021-10-20] MEDS ORDERED: acetaminophen 325mg tablet PO PRN ×2 (16:35)
[2021-10-20 16:38] VITALS: BP 128/75
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
--- NOTE | 2021-10-20 17:39 | NUR ---
WOUND CONSULT PLACED. Addendum: 10/20/21 at 1818 by Sue Rob RN BILATERAL FEET CLEANSED AND DRESSED.
[2021-10-20 19:35] VITALS: BP 112/66
[2021-10-20] MEDS: hydrOXYzine 25 MG tablet PO SCH (20:52)
[2021-10-20] MEDS: mirtazapine 15mg tablet PO SCH (20:58)
--- NOTE | 2021-10-21 04:54 | NUR ---
Nursing Progress Note Problem: Patient was brought in and dropped off by Haroon Meneses to the ED with suicidal and homicidal ideations. Patient requested to be hospitalized. Patient reports he was just released from correction prior to coming to [facility]. Patient has a history of schizophrenia and has not been taking his medications. Patient reports that he would like to kill somebody or hang himself. Patient reports intermittent shaking. Patient has been feeling suicidal and homicidal for a few weeks. Patient has wounds on bilateral feet secondary to walking a lot. Patient does have a history of self-harm. Hx: seizures, Asthma, GERD, MRSA Abscess, Anxiety, Depression, Schizophrenia. Intervention: Medication given as ordered. Maintained a safe and supportive environment, administered scheduled and PRN medications. Response: Patient is pleasant and cooperative with care; compliant with medication. PRN Atarax and Tylenol provided this shift. He endorses SI and denies HI, A/VH this shift but explained he was having hallucinations earlier in the day. Patient's body is covered in scrapes/cuts and his feet remain wrapped in bandages; DSGs are CDI. He appears fatigued and remained in his room throughout this shift; WC is at bedside if needed. He is observed sleeping and does not appear to be having difficulty. Plan: Patient requires crisis interruption and stabilization with medication management and monitoring in a safe and therapeutic environment.
--- NOTE | 2021-10-21 07:19 | NUR ---
Malnutrition/Wound consult: Pt admitted w/ SI and hx of schizophrenia per EMR. Pt unsure of wt loss per MST. Current non-scaled wt greater than scaled wt in 2020 which was 72kg. No signs of muscle or fat wasting reported. No edema noted. Pt consumed 100% of first meal. At this time pt does not meet minimum criteria for malnutrition. Per RN skin assessment pt has multiple abrasions to BLE/BUE w/ an open wounds to bottom of feet, WOC pending. Will continue to monitor. Addendum: 10/21/21 at [address] Amended: Links added.
[2021-10-21] MEDS: nicotine 21mg patch - 24 hr TD SCH (07:53)
[2021-10-21] MEDS: hydrOXYzine 25 MG tablet PO SCH ×2 (07:53→20:14)
[2021-10-21] MEDS: aripiprazole 5mg tablet PO SCH (07:53)
[2021-10-21 08:10] VITALS: BP 132/69
[2021-10-21 08:58] LABS: CHOL/HDL RATIO 4.4 (0.00-4.99); CHOLESTEROL 153 MG/DL (0-200); HDL CHOLESTEROL 35 MG/DL (35-60); LDL CHOLESTEROL 91 MG/DL (50-100); TRIGLYCERIDES 128 MG/DL (20-135)
[2021-10-21] MEDS: LIDOCAINE 5% OINTMENT 35GM TP SCH ×3 (09:00→18:00)
[2021-10-21 09:54] LABS: HEMOGLOBIN A1C 5.9 % (4.5-6.2)
--- NOTE | 2021-10-21 14:07 | NUR ---
WOUND INFECTION EDUCATION PROVIDED BY WOUND CARE 1. Patient instructed to call their primary doctor, or go the ED immediately if any of the following symptoms occur: * Increased pain in wound * Increase in drainage from the wound * Redness in the skin surrounding the wound * Warmth in the skin surrounding the wound * Bleeding from the wound * Temperature of 101 or greater 2. If any of these occur while in the hospital tell a nurse immediately. Addendum: 10/21/21 at 1407 by Vilma Elmore LVN Amended: Links added.
--- NOTE | 2021-10-21 15:49 | NUR ---
Nursing Progress Note: Problem: Patient was brought in and dropped off by Haroon Meneses to the ED with suicidal and homicidal ideations. Patient requested to be hospitalized. Patient reports he was just released from residential prior to coming to [facility]. Patient has a history of schizophrenia and has not been taking his medications. Patient reports that he would like to kill somebody or hang himself. Patient reports intermittent shaking. Patient has been feeling suicidal and homicidal for a few weeks. Patient has wounds on bilateral feet secondary to walking a lot. Patient does have a history of self-harm. Hx: seizures, Asthma, GERD, MRSA Abscess, Anxiety, Depression, Schizophrenia. Intervention: Medication given as ordered. Maintained a safe and supportive environment, administered scheduled and PRN medications. Response: Patient seen at bedside for 1:1. He wakes easily, but is guarded and fatigued. Patient just wants to sleep. Woke him for breakfast and he came to community room. He received his morning meds at that time. Patient went back to bed until ~0900 when BERTHA Brooke came to see him. Wound care nurse came right after Gaudencio. Dressings removed and replaced. Patient reports SI, but not as strong as before. He also reports the voices are coming back. Patient resting in his room all day. Plan: Patient requires crisis interruption and stabilization with medication management and monitoring in a safe and therapeutic environment.
[2021-10-21 19:36] VITALS: BP 122/76
[2021-10-21] MEDS: traZODone 50mg tablet PO SCH (20:14)
[2021-10-21] MEDS: mirtazapine 15mg tablet PO SCH (20:14)
--- NOTE | 2021-10-22 05:04 | NUR ---
Nursing Progress Note Problem: Patient was brought in and dropped off by Haroon Meneses to the ED with suicidal and homicidal ideations. Patient requested to be hospitalized. Patient reports he was just released from custodial prior to coming to [facility]. Patient has a history of schizophrenia and has not been taking his medications. Patient reports that he would like to kill somebody or hang himself. Patient reports intermittent shaking. Patient has been feeling suicidal and homicidal for a few weeks. Patient has wounds on bilateral feet secondary to walking a lot. Patient does have a history of self-harm. Hx: seizures, Asthma, GERD, MRSA Abscess, Anxiety, Depression, Schizophrenia. Intervention: Medication given as ordered. Maintained a safe and supportive environment, administered scheduled and PRN medications. Response: Patient is pleasant cooperative; compliant with medication. He denies SI, HI, A/VH this shift; no apparent delusions expressed. Patient remained in bed throughout the shift; observed sleeping and does not appear to be having difficulty. Wound DSGs to both feet remain CDI and WC available at bedside. Plan: Patient requires crisis interruption and stabilization with medication management and monitoring in a safe and therapeutic environment.
[2021-10-22] MEDS: ESCITALOPRAM OXALATE 5 MG TABLET PO SCH (07:16)
[2021-10-22] MEDS: aripiprazole 5mg tablet PO SCH (07:16)
[2021-10-22] MEDS: hydrOXYzine 25 MG tablet PO SCH ×2 (07:18→20:10)
[2021-10-22] MEDS: nicotine 21mg patch - 24 hr TD SCH ×2 (07:18→17:29)
--- NOTE | 2021-10-22 07:50 | NUR ---
F/u 10/22: Abrasions/bug bites noted by WOC assessment in EMR; no further nutrition intervention at this time. Addendum: 10/22/21 at [address] Amended: Links added.
[2021-10-22 08:15] VITALS: BP 126/75
[2021-10-22] MEDS: LIDOCAINE 5% OINTMENT 35GM TP SCH ×3 (09:00→17:31)
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
--- NOTE | 2021-10-22 15:00 | NUR ---
Nursing Progress Note: Problem: Patient was brought in and dropped off by Haroon Meneses to the ED with suicidal and homicidal ideations. Patient requested to be hospitalized. Patient reports he was just released from custodial prior to coming to [facility]. Patient has a history of schizophrenia and has not been taking his medications. Patient reports that he would like to kill somebody or hang himself. Patient reports intermittent shaking. Patient has been feeling suicidal and homicidal for a few weeks. Patient has wounds on bilateral feet secondary to walking a lot. Patient does have a history of self-harm. Hx: seizures, Asthma, GERD, MRSA Abscess, Anxiety, Depression, Schizophrenia. Intervention: Medication given as ordered. Maintained a safe and supportive environment, administered scheduled and PRN medications. Response: Patient slept until breakfast. He was calm and cooperative with care, breakfast and morning meds. Patient went back to isolating in his room until lunch time. He reports that he's not suicidal anymore, but still having thoughts of harming others. He contracts to not harm anybody while here. After lunch, before he went back to sleep, his dressing were removed and wound assessed. The soles of patient's feet are thickened like callous. His wounds to toes are scabbing, and skin is softening from lotion. Healing process has a good start. Both legs have been re-dressed. Patient has isolated to his room all afternoon. Plan: Patient requires crisis interruption and stabilization with medication management and monitoring in a safe and therapeutic environment.
[2021-10-22 19:40] VITALS: BP 135/74
[2021-10-22] MEDS: mirtazapine 15mg tablet PO SCH (20:10)
[2021-10-22] MEDS: traZODone 50mg tablet PO SCH (20:10)
--- NOTE | 2021-10-23 05:07 | NUR ---
Nursing Progress Note Problem: Patient was brought in and dropped off by Haroon Meneses to the ED with suicidal and homicidal ideations. Patient requested to be hospitalized. Patient reports he [facility] just [facility] to coming to [facility]. Patient has a history of schizophrenia and has not been taking his medications. Patient reports that he would like to kill somebody or hang himself. Patient reports intermittent shaking. Patient has been feeling suicidal and homicidal for a few weeks. Patient has wounds on bilateral feet secondary to walking a lot. Patient does have a history of self-harm. Hx: seizures, Asthma, GERD, MRSA Abscess, Anxiety, Depression, Schizophrenia. Intervention: Medication given as ordered. Maintained a safe and supportive environment, administered scheduled and PRN medications. Response: Patient is pleasant cooperative; compliant with medication. Nicotine patch removed. Wound DSGs to both feet remain CDI. He denies SI, HI, A/VH; no apparent delusions expressed. Patient observed using WC in the hallway, participated in HS snack and social with staff. Plan: Patient requires crisis interruption and stabilization with medication management and monitoring in a safe and therapeutic environment.
[2021-10-23] MEDS: hydrOXYzine 25 MG tablet PO SCH ×2 (07:50→20:20)
[2021-10-23] MEDS: aripiprazole 5mg tablet PO SCH (07:50)
[2021-10-23] MEDS: nicotine 21mg patch - 24 hr TD SCH (07:50)
[2021-10-23 08:00] VITALS: BP 124/65
[2021-10-23] MEDS: ESCITALOPRAM OXALATE 5 MG TABLET PO SCH (08:20)
[2021-10-23] MEDS: LIDOCAINE 5% OINTMENT 35GM TP SCH ×3 (09:00→18:00)
--- NOTE | 2021-10-23 14:35 | NUR ---
Nursing Progress Note Problem: Patient was brought in and dropped off by Haroon Meneses to the ED with suicidal and homicidal ideations. Patient requested to be hospitalized. Patient reports he was just released from shelter prior to coming to [facility]. Patient has a history of schizophrenia and has not been taking his medications. Patient reports that he would like to kill somebody or hang himself. Patient reports intermittent shaking. Patient has been feeling suicidal and homicidal for a few weeks. Patient has wounds on bilateral feet secondary to walking a lot. Patient does have a history of self-harm. Hx: seizures, Asthma, GERD, MRSA Abscess, Anxiety, Depression, Schizophrenia. Intervention: Medication given as ordered. Maintained a safe and supportive environment, administered scheduled and PRN medications. Response: The patient was asleep at shift change, but woke up for morning meds and breakfast. He went back to bed and slept until this rewriter woke him up to change the dressings on his feet. Patient reports my head is clearing up. He was up for lunch, then back to isolating in his room. Patient has been pleasant and cooperative with care. His actions have been appropriate. Plan: Patient requires crisis interruption and stabilization with medication management and monitoring in a safe and therapeutic environment.
[2021-10-23 19:30] VITALS: BP 132/69
[2021-10-23] MEDS: traZODone 50mg tablet PO SCH (20:20)
[2021-10-23] MEDS: mirtazapine 15mg tablet PO SCH (20:20)
--- NOTE | 2021-10-24 05:06 | NUR ---
Nursing Progress Note Problem: Patient was brought in and dropped off by Haroon Meneses to the ED with suicidal and homicidal ideations. Patient requested to be hospitalized. Patient reports he was just released from halfway prior to coming to [facility]. Patient has a history of schizophrenia and has not been taking his medications. Patient reports that he would like to kill somebody or hang himself. Patient reports intermittent shaking. Patient has been feeling suicidal and homicidal for a few weeks. Patient has wounds on bilateral feet secondary to walking a lot. Patient does have a history of self-harm. Hx: seizures, Asthma, GERD, MRSA Abscess, Anxiety, Depression, Schizophrenia. Intervention: Medication given as ordered. Maintained a safe and supportive environment, administered scheduled and PRN medications. Response: Patient is pleasant cooperative; compliant with medication. Nicotine patch removed. Wound DSGs to both feet remain CDI. He denies SI, HI, A/VH; no apparent delusions expressed. Patient observed ambulating without assistance, participated in HS snack and social with staff. Plan: Patient requires crisis interruption and stabilization with medication management and monitoring in a safe and therapeutic environment.
--- NOTE | 2021-10-24 07:10 | NUR ---
Initial: Pt admitted w/ SI and hx of schizophrenia per EMR. Currently on Regular diet w/ mostly 100% intake of meals meeting needs at this time. [facility] 10/20 w/ PRN bowel care available. No nutrition intervention implemented at this time, will continue to monitor. Recs; 1. Continue Regular diet as tolerated 2. Bowel care PRN 3. Scaled wts Addendum: 10/24/21 at [address] Amended: Links added.
[2021-10-24 07:30] VITALS: BP 132/84
[2021-10-24] MEDS: aripiprazole 5mg tablet PO SCH (08:06)
[2021-10-24] MEDS: ESCITALOPRAM OXALATE 5 MG TABLET PO SCH (08:06)
[2021-10-24] MEDS: nicotine 21mg patch - 24 hr TD SCH (08:06)
[2021-10-24] MEDS: hydrOXYzine 25 MG tablet PO SCH ×2 (08:06→19:55)
[2021-10-24] MEDS: LIDOCAINE 5% OINTMENT 35GM TP SCH ×3 (10:26→17:39)
--- NOTE | 2021-10-24 15:17 | NUR ---
Nursing Progress Note: Problem: Patient was brought in and dropped off by Haroon Meneses to the ED with suicidal and homicidal ideations. Patient requested to be hospitalized. Patient reports he was just released from halfway prior to coming to [facility]. Patient has a history of schizophrenia and has not been taking his medications. Patient reports that he would like to kill somebody or hang himself. Patient reports intermittent shaking. Patient has been feeling suicidal and homicidal for a few weeks. Patient has wounds on bilateral feet secondary to walking a lot. Patient does have a history of self-harm. Hx: seizures, Asthma, GERD, MRSA Abscess, Anxiety, Depression, Schizophrenia. Intervention: Maintained a safe and supportive environment, administered medication as ordered with no adverse side effects, completed wound care as per provider orders, pt tolerated well, encouraged therapeutic conversation with positive feedback, encouraged patient to participated with daily ADLs, maintained Q 15min safety check Response: Received patient sleeping at shift change, pt woke ate breakfast and was compliant with care and medications. Pt talked about wanting to go to rehab. Pts tolerated dressing change, to shower today. Pt is more visible on unit today, affect is brighter. Noted some appropriate socialization with peers. Pt denies all psychotic symptoms. Pt states he has some depression, but definitely improving. Pt doesnt appear to be responding to internal stimuli. Plan: Pt continues to endorse depression, but states symptoms are improving. Pt continues to be compliant with his mediations. Providers are working on a safe discharge plan beneficial for patient.
[2021-10-24 19:26] VITALS: BP 124/85
[2021-10-24] MEDS: traZODone 50mg tablet PO SCH (19:55)
[2021-10-24] MEDS: mirtazapine 15mg tablet PO SCH (19:56)
--- NOTE | 2021-10-25 04:54 | NUR ---
Nursing Progress Note Problem: Patient was brought in and dropped off by Haroon Meneses to the ED with suicidal and homicidal ideations. Patient requested to be hospitalized. Patient reports he was just released from half-way prior to coming to [facility]. Patient has a history of schizophrenia and has not been taking his medications. Patient reports that he would like to kill somebody or hang himself. Patient reports intermittent shaking. Patient has been feeling suicidal and homicidal for a few weeks. Patient has wounds on bilateral feet secondary to walking a lot. Patient does have a history of self-harm. Hx: seizures, Asthma, GERD, MRSA Abscess, Anxiety, Depression, Schizophrenia. Intervention: Medication given as ordered. Maintained a safe and supportive environment, administered scheduled and PRN medications. Response: Patient is pleasant and cooperative with care; compliant with medication. PRN Tylenol provided. Nicotine patch removed. DSGs to feet CDI. Patient denies SI, HI, A/VH; no apparent delusions expressed. He continues to express waning to discharge to a rehab center. Patient observed ambulating without assistance, social with staff and participated in HS snack prior to bed; observed sleeping and does not appear to be having difficulty. Plan: Patient requires crisis interruption and stabilization with medication management and monitoring in a safe and therapeutic environment.
[2021-10-25] MEDS: nicotine 21mg patch - 24 hr TD SCH (07:18)
[2021-10-25] MEDS: aripiprazole 5mg tablet PO SCH (07:19)
[2021-10-25] MEDS: hydrOXYzine 25 MG tablet PO SCH ×2 (07:19→20:18)
[2021-10-25] MEDS: ESCITALOPRAM OXALATE 5 MG TABLET PO SCH (07:19)
[2021-10-25 07:55] VITALS: BP 130/80
[2021-10-25] MEDS: LIDOCAINE 5% OINTMENT 35GM TP SCH ×3 (10:03→17:03)
--- NOTE | 2021-10-25 11:16 | NUR ---
Met with patient in regards to substance use and to see if patient was interested in treatment options. Patient would like to go to an inpatient rehab. I gave patient [facility] number to call and start process. I will follow up with patient and assist him if needed.
--- NOTE | 2021-10-25 15:45 | NUR ---
NURSING PROGRESS NOTE: PHILLIP Problem: Patient was brought in and dropped off by Haroon Meneses to the ED with suicidal and homicidal ideations. Patient requested to be hospitalized. Patient reports he was just released from shelter prior to coming to [facility]. Patient has a history of schizophrenia and has not been taking his medications. Patient reports that he would like to kill somebody or hang himself. Patient reports intermittent shaking. Patient has been feeling suicidal and homicidal for a few weeks. Patient has wounds on bilateral feet secondary to walking a lot. Patient does have a history of self-harm. Hx: seizures, Asthma, GERD, MRSA Abscess, Anxiety, Depression, Schizophrenia. Intervention: Maintained a safe and supportive environment, administered medication as ordered with no adverse side effects, completed wound care as per provider orders, pt tolerated well, encouraged therapeutic conversation with positive feedback, encouraged patient to participated with daily ADLs, encouraged patient not to pick at healing scabs on arms, educated on infection control., maintained Q 15min safety check Response: Received patient sleeping at shift change, no pertinent change with patient since yesterday. Pt continues to be compliant with care and medication. Pt denies all psychotic symptoms, states Im not depressed anymore, I am ready to leave. Pt tells write the first he is going to do is buy me a pack of smokes. Pt states he has $117.00 on his card. Pt is focused on going to rehab. Pt tolerated wound care without pain. Pt is able to walk with full weight without pain, only 3 small open areas on toes. Pt is visible on unit, socializing appropriately with peers or in his room lying down. Pt is a little restless, asked several times am I leaving today. Patient declined lotion for dry skin around healing scabs, said Im good and agreed not to pick or scratch. Plan: Plan to continue to work towards a safe discharge plan for patient, whether it be into a substance abuse program or [facility]. Addendum: 10/25/21 at 1701 by Sue Rob RN PATIENT HAD INDEPENDENT SPONGE BATH AND GIVEN CLEAN SCRUBS.
[2021-10-25 19:50] VITALS: BP 130/90
[2021-10-25] MEDS: mirtazapine 15mg tablet PO SCH (20:18)
[2021-10-25] MEDS: traZODone 50mg tablet PO SCH (20:18)
--- NOTE | 2021-10-26 04:26 | NUR ---
Nursing Progress Note Problem: Patient was brought in and dropped off by Haroon Meneses to the ED with suicidal and homicidal ideations. Patient requested to be hospitalized. Patient reports he was just released from senior care prior to coming to [facility]. Patient has a history of schizophrenia and has not been taking his medications. Patient reports that he would like to kill somebody or hang himself. Patient reports intermittent shaking. Patient has been feeling suicidal and homicidal for a few weeks. Patient has wounds on bilateral feet secondary to walking a lot. Patient does have a history of self-harm. Hx: seizures, Asthma, GERD, MRSA Abscess, Anxiety, Depression, Schizophrenia. Intervention: Medication given as ordered. Maintained a safe and supportive environment, administered scheduled and PRN medications. Response: Patient is pleasant and cooperative with care; compliant with medication. Nicotine patch removed. Wound DSGs CDI. He continues to deny SI, HI, A/VH; no apparent delusions expressed. Patient expressed possible discharge during next shift and reports feeling happy about that. He participated in HS snack prior to bed; observed sleeping and does not appear to be having difficulty. Plan: Patient requires crisis interruption and stabilization with medication management and monitoring in a safe and therapeutic environment.
[2021-10-26] MEDS: hydrOXYzine 25 MG tablet PO SCH (07:11)
[2021-10-26] MEDS: ESCITALOPRAM OXALATE 5 MG TABLET PO SCH (07:11)
[2021-10-26] MEDS: aripiprazole 5mg tablet PO SCH (07:11)
[2021-10-26] MEDS: nicotine 21mg patch - 24 hr TD SCH (07:12)
[2021-10-26] MEDS: LIDOCAINE 5% OINTMENT 35GM TP SCH (08:35)
[2021-10-26] MEDS ORDERED: ESCI-8 PO (08:44)
[2021-10-26] MEDS ORDERED: NICO-687 TD (08:44)
[2021-10-26] MEDS ORDERED: TRAZ-251 PO (08:44)
[2021-10-26] MEDS ORDERED: ARIP20TA21 PO (08:44)
[2021-10-26] MEDS ORDERED: HYDR50TA65 PO (08:44)
[2021-10-26] MEDS ORDERED: NICO-907 BC (08:44)
[2021-10-26 08:59] VITALS: BP 133/87
--- NOTE | 2021-10-26 10:04 | NUR ---
DISCHARGE NOTE: Patient was discharged from unit at 0945. Pt was A&Ox4 and left with all personal belongings. Pt's wounds were assessed by BLADIMIR Trevizo from wound care prior to discharge. Pt's feet were cleansed and Eucerin cream was applied and clean socks placed on feet. Pt left with cream and four pairs of cleans socks. Pt was thoroughly educated on the importance of keeping feet clean and treated and clean socks daily. Pt verbalized understanding. 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
[2021-10-26] MEDS ORDERED: mineral oil/petrolatum, white cream 113gm jar TP SCH (20:00)
== END 2021-10-26 09:45 | disposition home or self-care (01) | DRG 885 ==
LOC: ER 15:40 → ED HOLD 10-20 12:06 → ADULT MH 10-20 16:26
PROVIDERS: ADMIT Psychiatry & Neurology Psychiatry; ATTEND Psychiatry & Neurology Psychiatry
DX: F33.2 Major depressive disorder, recurrent severe without psychotic features (principal); R45.851 Suicidal ideations; K21.9 Gastro-esophageal reflux disease without esophagitis; F20.9 Schizophrenia, unspecified; Z20.822 Contact with and (suspected) exposure to COVID-19; S00.81XA Abrasion of other part of head, initial encounter; S60.512A Abrasion of left hand, initial encounter; S60.511A Abrasion of right hand, initial encounter; S90.812A Abrasion, left foot, initial encounter; S90.811A Abrasion, right foot, initial encounter; X58.XXXA Exposure to other specified factors, initial encounter; F12.90 Cannabis use, unspecified, uncomplicated; F15.90 Other stimulant use, unspecified, uncomplicated; F17.200 Nicotine dependence, unspecified, uncomplicated; F41.9 Anxiety disorder, unspecified; J45.909 Unspecified asthma, uncomplicated; Z59.00 Homelessness unspecified; Z56.0 Unemployment, unspecified; Z91.14 Patient's other noncompliance with medication regimen; Z88.8 Allergy status to other drugs, medicaments and biological substances; Z81.1 Family history of alcohol abuse and dependence; Y93.89 Activity, other specified; Y92.89 Other specified places as the place of occurrence of the external cause; Y99.8 Other external cause status; Z71.6 Tobacco abuse counseling
CPT/HCPCS: 36415; 71045; 80053; 80061; 80305; 80320; 83036; 84443; 85025; 87081; 99285; A6212; A6223; A6258; A6446; A6449; Q0177

== ENCOUNTER 2022-07-26 12:00 | Emergency (ER) | payer BC, MEDICAID ==
[~2022-07-26] VITALS: Ht 190.5 cm; Wt 88.6 kg
[~2022-07-26 12:00] MED LIST changes: +ARIP20TA21 PO; +ESCI-8 PO; -HYDR-3686 PO; +HYDR50TA65 PO; +NICO-687 TD; +NICO-907 BC; +NO HOME MEDS
[2022-07-26 13:46] LABS: BASOPHILS # (AUTO) 0.1 X10'3 (0-0.2); EOSINOPHILS # (AUTO) 0.1 X10'3 (0-0.9); EOSINOPHILS % (AUTO) 1.8 % (0-6); HEMATOCRIT 44.1 % (42.0-52.0); HEMOGLOBIN 14.9 g/dl (14.0-17.9); LYMPHOCYTES # (AUTO) 1.9 X10'3 (1.1-4.8); LYMPHOCYTES % (AUTO) 23.6 % (21-51); MEAN CORPUSCULAR HEMOGLOBIN 30.6 PG (27.0-31.0); MEAN CORPUSCULAR HGB CONC 33.7 g/dL (33.0-36.5); MEAN CORPUSCULAR VOLUME 90.8 FL (78-98); MONOCYTES # (AUTO) 0.8 X10'3 (0-0.9); MONOCYTES % (AUTO) 9.9 % (2-12); NEUTROPHILS # (AUTO) 5.1 X10'3 (1.8-7.7); NEUTROPHILS % (AUTO) 63.7 % (42-75); PLATELET COUNT 438 X10'3 (140-440); RED BLOOD COUNT 4.85 X10'6 (4.70-6.10); RED CELL DISTRIBUTION WIDTH 13.8 % (11.5-14.5); WHITE BLOOD COUNT 8.1 X10'3 (4.5-11.0)
[2022-07-26 13:54] LABS: ALANINE AMINOTRANSFERASE 48 U/L (12-78); ALBUMIN 3.6 G/DL (3.4-5.0); ALBUMIN/GLOBULIN RATIO 0.8 (1.1-1.5); ALKALINE PHOSPHATASE 91 IU/L (46-116); ANION GAP 10 (8-16); ASPARTATE AMINO TRANSFERASE 56 U/L (10-37); BILIRUBIN,TOTAL 0.8 MG/DL (0.1-1.0); BLOOD UREA NITROGEN 39 MG/DL (7-18); BUN/CREATININE RATIO 33.9 (10.0-20.0); CALCIUM 9.1 MG/DL (8.5-10.1); CHLORIDE 98 MMOL/L (99-107); CREATININE 1.15 MG/DL (0.60-1.10); GLUCOSE 125 MG/DL (70-104); POTASSIUM 3.2 MMOL/L (3.5-5.1); SODIUM 137 MMOL/L (135-145); TOTAL CARBON DIOXIDE 29.3 MMOL/L (24-32); TOTAL PROTEIN 8.2 G/DL (6.4-8.2); eGFR 72 ML/MIN
[2022-07-26 14:03] LABS: ETHANOL < 0.010 GM/DL (0.0-0.010)
[2022-07-26] MEDS ORDERED: POTASSIUM BICARB 20meq eff tab 20 MEQ TABLET.EFF PO ONE (14:10)
--- NOTE | 2022-07-26 17:39 | NUR ---
When asked about his SI/HI, pt states he has a detailed plan, and intends to "kill everyone and then myself". While pt was not forthcoming regarding method, pt stated his plan included "the most lethal means possible". When I asked if this included guns and/or knives, he did not answer, and did not answer when I asked if he had his method readily available. I made the provider aware of his statements. Today is also this pt's birthday.
[2022-07-26 17:44] LABS: URINE AMPHETAMINE SCREEN POSITIVE (Neg); URINE BARBITUATE SCREEN NEGATIVE (Neg); URINE BENZODIAZEPINES SCREEN NEGATIVE (Neg); URINE CANNABINOID SCREEN POSITIVE (Neg); URINE COCAINE SCREEN NEGATIVE (Neg); URINE METHADONE SCREEN NEGATIVE (Neg); URINE OPIATE SCREEN NEGATIVE (Neg); URINE PHENCYCLIDINE SCREEN NEGATIVE (Neg)
[2022-07-27 08:12] VITALS: BP 115/78
--- NOTE | 2022-07-27 10:09 | NUR ---
RN UPDATED JODI WITH [facility] ABOUT PT CONDITION FOR TRANSFER.
--- NOTE | 2022-07-27 10:51 | NUR ---
[facility] CALLED AND NOTIFIED RN THAT PT WAS ACCEPTED TO [facility] IN [facility] AND HE WOULD BE TRANSPORTED AT [phone] BY [facility]. RN CALLED REPORT TO PHU GARRISON AT [facility] AND NOTIFIED HER OF ETA. [place] NOTIFIED CHARGE CHERELLE GARRISON ETA OF TRANSPORT.
--- NOTE | 2022-07-27 15:02 | NUR ---
Reliveing olman RN for break; Pt resting quietly in bed at this time; Eyes closed; Respirations even and unlabored
== END 2022-07-27 15:19 ==
LOC: ER 12:01
DX: R45.850 Homicidal ideations (principal); Z20.822 Contact with and (suspected) exposure to COVID-19; J45.909 Unspecified asthma, uncomplicated; K21.9 Gastro-esophageal reflux disease without esophagitis; F31.9 Bipolar disorder, unspecified; F20.9 Schizophrenia, unspecified; F12.10 Cannabis abuse, uncomplicated; F15.10 Other stimulant abuse, uncomplicated; Z88.1 Allergy status to other antibiotic agents; Z79.899 Other long term (current) drug therapy
CPT/HCPCS: 36415; 80053; 80305; 80320; 84443; 85025; 87811; 99285

== ENCOUNTER 2022-08-17 10:27 | Emergency (ER) | payer BC, MEDICAID ==
[~2022-08-17] VITALS: Ht 193 cm; Wt 79.4 kg
[2022-08-17 10:40] VITALS: BP 135/76
--- NOTE | 2022-08-17 11:06 | NUR ---
pt presents to the er stating " i need a medical tx, 3 days ago i smoked fentanyl and now my hands and feet are swollen"
[2022-08-17] MEDS ORDERED: CEPH-585 PO (11:32)
== END 2022-08-17 11:59 | disposition home or self-care (01) ==
LOC: ER 10:28
DX: L03.115 Cellulitis of right lower limb (principal); L03.116 Cellulitis of left lower limb; K21.9 Gastro-esophageal reflux disease without esophagitis; J45.909 Unspecified asthma, uncomplicated; F31.9 Bipolar disorder, unspecified; F20.9 Schizophrenia, unspecified; F12.10 Cannabis abuse, uncomplicated; F15.10 Other stimulant abuse, uncomplicated; F17.200 Nicotine dependence, unspecified, uncomplicated; Z59.00 Homelessness unspecified; Z56.0 Unemployment, unspecified
CPT/HCPCS: 99283

== ENCOUNTER 2022-09-20 09:06 | Emergency (ER) | payer BC, MEDICAID ==
[~2022-09-20] VITALS: Ht 193 cm; Wt 95.5 kg
[~2022-09-20 09:06] MED LIST changes: +CEPH-585 PO
[2022-09-20] MEDS ORDERED: acetaminophen 325mg tablet PO ONE (09:50)
[2022-09-20] MEDS ORDERED: ibuprofen tablet 400 MG TABLET PO ONE (09:50)
[2022-09-20] MEDS ORDERED: ibuprofen 200mg tablet PO ONE (09:55)
[2022-09-20 10:54] VITALS: BP 124/72
[2022-09-20] MEDS ORDERED: IBUP-1984 PO (11:30)
[2022-09-20] MEDS ORDERED: ACET-1025 PO (11:30)
== END 2022-09-20 11:37 | disposition home or self-care (01) ==
LOC: ER 09:07
DX: J02.9 Acute pharyngitis, unspecified (principal); J45.909 Unspecified asthma, uncomplicated; F12.90 Cannabis use, unspecified, uncomplicated; F15.20 Other stimulant dependence, uncomplicated; K21.9 Gastro-esophageal reflux disease without esophagitis; Z88.1 Allergy status to other antibiotic agents; Z59.00 Homelessness unspecified; Z56.0 Unemployment, unspecified
CPT/HCPCS: 87081; 87880; 99283

== ENCOUNTER 2023-01-13 21:37 | Emergency (ER) | payer BC, MEDICAID ==
[~2023-01-13] VITALS: Ht 193 cm; Wt 90.9 kg
[2023-01-13 21:47] VITALS: BP 129/78; PULSE 103; RESP 18; TEMP 98.1; O2SAT 97
[2023-01-13] MEDS ORDERED: bacitracin 15gm ointment TP ONE (23:15)
== END 2023-01-13 23:40 | disposition home or self-care (01) ==
LOC: ER 21:38
DX: S90.822A Blister (nonthermal), left foot, initial encounter (principal); S90.821A Blister (nonthermal), right foot, initial encounter; J45.909 Unspecified asthma, uncomplicated; F12.90 Cannabis use, unspecified, uncomplicated; F15.90 Other stimulant use, unspecified, uncomplicated; K21.9 Gastro-esophageal reflux disease without esophagitis; Z88.1 Allergy status to other antibiotic agents; Z79.899 Other long term (current) drug therapy; Z79.2 Long term (current) use of antibiotics; X58.XXXA Exposure to other specified factors, initial encounter; Y93.89 Activity, other specified; Y92.89 Other specified places as the place of occurrence of the external cause; Y99.8 Other external cause status
CPT/HCPCS: 99282

== ENCOUNTER 2023-04-16 10:42 | Emergency (ER) | payer BC, MEDICAID ==
[~2023-04-16] VITALS: Ht 190.5 cm; Wt 86.5 kg
[2023-04-16 11:07] VITALS: BP 156/91; PULSE 98; RESP 18; TEMP 97.8; O2SAT 98
== END 2023-04-16 15:37 | disposition left against medical advice (07) ==
LOC: ER 10:42
DX: M79.602 Pain in left arm (principal); Z53.21 Procedure and treatment not carried out due to patient leaving prior to being seen by health care provider
CPT/HCPCS: 99281

== ENCOUNTER 2023-07-19 18:01 | Emergency (ER) | payer BC, MEDICAID ==
[~2023-07-19] VITALS: Ht 193 cm; Wt 82.5 kg
[2023-07-19 20:19] LABS: STREP A SCREEN NEGATIVE (Neg)
[2023-07-19 21:01] VITALS: BP 119/77; PULSE 71; RESP 16; TEMP 99; O2SAT 95
== END 2023-07-19 20:58 | disposition home or self-care (01) ==
LOC: ER 18:03
DX: J22 Unspecified acute lower respiratory infection (principal); K21.9 Gastro-esophageal reflux disease without esophagitis; J45.909 Unspecified asthma, uncomplicated; F12.90 Cannabis use, unspecified, uncomplicated; F15.90 Other stimulant use, unspecified, uncomplicated; Z88.1 Allergy status to other antibiotic agents; Z79.899 Other long term (current) drug therapy; Z79.2 Long term (current) use of antibiotics
CPT/HCPCS: 87081; 87880; 93005; 99284

== ENCOUNTER 2024-02-05 11:14 | Emergency (ER) | payer BC, MEDICAID ==
[~2024-02-05] VITALS: Ht 195.6 cm; Wt 95.5 kg
[~2024-02-05 11:14] MED LIST changes: -ARIP20TA21 PO; +ARIP20TA63 PO; -CEPH-585 PO; +IBUP-1985 PO
[2024-02-05 11:22] VITALS: BP 116/74; PULSE 78; RESP 18; TEMP 97.8; O2SAT 98
[2024-02-06] MEDS ORDERED: CEPH-585 PO (10:31)
== END 2024-02-05 12:26 | disposition left against medical advice (07) ==
LOC: ER 11:15
DX: M25.551 Pain in right hip (principal); M25.552 Pain in left hip; M79.671 Pain in right foot; M79.672 Pain in left foot; Z53.21 Procedure and treatment not carried out due to patient leaving prior to being seen by health care provider

== ENCOUNTER 2024-02-06 10:07 | Emergency (ER) | payer BC, MEDICAID ==
[~2024-02-06] VITALS: Ht 193 cm; Wt 95.0 kg
[2024-02-06 10:10] VITALS: BP 121/88; TEMP 97
[2024-02-06] MEDS ORDERED: CEPH-585 PO (10:31)
[2024-02-06 11:25] VITALS: PULSE 78; RESP 16; O2SAT 97
== END 2024-02-06 11:52 ==
LOC: ER 10:08
DX: S90.934D Unspecified superficial injury of right lesser toe(s), subsequent encounter (principal); J45.909 Unspecified asthma, uncomplicated; K21.9 Gastro-esophageal reflux disease without esophagitis; F12.90 Cannabis use, unspecified, uncomplicated; F15.90 Other stimulant use, unspecified, uncomplicated; F41.9 Anxiety disorder, unspecified; F32.A Depression, unspecified; F20.9 Schizophrenia, unspecified; F17.210 Nicotine dependence, cigarettes, uncomplicated; Z72.89 Other problems related to lifestyle; Z02.89 Encounter for other administrative examinations; Z88.1 Allergy status to other antibiotic agents; Z59.00 Homelessness unspecified; Z56.0 Unemployment, unspecified; Z79.2 Long term (current) use of antibiotics; Z79.899 Other long term (current) drug therapy; X58.XXXD Exposure to other specified factors, subsequent encounter
CPT/HCPCS: 99283

== ENCOUNTER 2024-02-22 08:59 | Emergency (ER) | payer BC, MEDICAID ==
[~2024-02-22] VITALS: Ht 195.6 cm; Wt 81.5 kg
[~2024-02-22 08:59] MED LIST changes: +CEPH-585 PO
[2024-02-22] MEDS ORDERED: CLIN-97 PO (10:31)
[2024-02-22 10:43] VITALS: BP 138/76; PULSE 75; RESP 16; TEMP 98; O2SAT 98
== END 2024-02-22 10:45 | disposition home or self-care (01) ==
LOC: ER 08:59
DX: S90.931A Unspecified superficial injury of right great toe, initial encounter (principal); R10.2 Pelvic and perineal pain; F12.90 Cannabis use, unspecified, uncomplicated; F15.90 Other stimulant use, unspecified, uncomplicated; J45.909 Unspecified asthma, uncomplicated; K21.9 Gastro-esophageal reflux disease without esophagitis; F20.9 Schizophrenia, unspecified; F41.9 Anxiety disorder, unspecified; F32.A Depression, unspecified; Z88.0 Allergy status to penicillin; Z79.899 Other long term (current) drug therapy; Z59.00 Homelessness unspecified; Z56.0 Unemployment, unspecified; Z72.89 Other problems related to lifestyle; Z98.890 Other specified postprocedural states; X58.XXXA Exposure to other specified factors, initial encounter; Y93.89 Activity, other specified; Y92.89 Other specified places as the place of occurrence of the external cause; Y99.8 Other external cause status
CPT/HCPCS: 72170; 99283; A6222

== ENCOUNTER 2024-02-25 14:51 | Emergency (ER) | payer BC, MEDICAID ==
[~2024-02-25] VITALS: Ht 195.6 cm; Wt 81.8 kg
[~2024-02-25 14:51] MED LIST changes: +CLIN-97 PO
[2024-02-25 16:24] LABS: BASOPHILS # (AUTO) 0.1 X10'3 (0-0.2); BASOPHILS % (AUTO) 0.7 % (0-1); EOSINOPHILS # (AUTO) 0.2 X10'3 (0-0.9); EOSINOPHILS % (AUTO) 2.5 % (0-6); HEMATOCRIT 32.9 % (42.0-52.0); HEMOGLOBIN 10.9 g/dl (14.0-17.9); LYMPHOCYTES % (AUTO) 20.1 % (21-51); MEAN CORPUSCULAR HEMOGLOBIN 29.8 PG (27.0-31.0); MEAN CORPUSCULAR VOLUME 90.4 FL (78-98); MEAN PLATELET VOLUME 6.9 FL (7.4-10.4); MONOCYTES # (AUTO) 1.6 X10'3 (0-0.9); NEUTROPHILS % (AUTO) 60.7 % (42-75); PLATELET COUNT 421 X10'3 (140-440); RED BLOOD COUNT 3.64 X10'6 (4.70-6.10); RED CELL DISTRIBUTION WIDTH 14.6 % (11.5-14.5); WHITE BLOOD COUNT 9.8 X10'3 (4.5-11.0)
[2024-02-25 16:34] LABS: ALANINE AMINOTRANSFERASE 33 U/L (12-78); ALBUMIN 2.9 G/DL (3.4-5.0); ALBUMIN/GLOBULIN RATIO 0.6 (1.1-1.5); ALKALINE PHOSPHATASE 95 IU/L (46-116); ANION GAP 6 (8-16); ASPARTATE AMINO TRANSFERASE 40 U/L (10-37); BILIRUBIN,TOTAL 0.3 MG/DL (0.1-1.0); BLOOD UREA NITROGEN 33 MG/DL (7-18); BUN/CREATININE RATIO 32.7 (10.0-20.0); CHLORIDE 101 MMOL/L (99-107); CREATININE 1.01 MG/DL (0.60-1.10); GLUCOSE 93 MG/DL (70-104); POTASSIUM 3.9 MMOL/L (3.5-5.1); SODIUM 137 MMOL/L (135-145); TOTAL CARBON DIOXIDE 30.4 MMOL/L (24-32); TOTAL PROTEIN 7.5 G/DL (6.4-8.2); eCRCL 115 ML/MIN; eGFR 83 ML/MIN
[2024-02-25 17:56] VITALS: BP 114/69; PULSE 67; RESP 16; TEMP 97.6; O2SAT 98
== END 2024-02-25 17:58 | disposition home or self-care (01) ==
LOC: ER 14:52
DX: S90.922D Unspecified superficial injury of left foot, subsequent encounter (principal); S90.921D Unspecified superficial injury of right foot, subsequent encounter; J45.909 Unspecified asthma, uncomplicated; K21.9 Gastro-esophageal reflux disease without esophagitis; F41.9 Anxiety disorder, unspecified; F32.A Depression, unspecified; F12.90 Cannabis use, unspecified, uncomplicated; F17.200 Nicotine dependence, unspecified, uncomplicated; F20.9 Schizophrenia, unspecified; F15.90 Other stimulant use, unspecified, uncomplicated; Z72.89 Other problems related to lifestyle; Z98.890 Other specified postprocedural states; Z59.00 Homelessness unspecified; Z56.0 Unemployment, unspecified; Z88.1 Allergy status to other antibiotic agents; Z79.899 Other long term (current) drug therapy; X58.XXXD Exposure to other specified factors, subsequent encounter
CPT/HCPCS: 80053; 85025; 99283; A4615

== ENCOUNTER 2024-02-28 22:19 | Emergency (ER) | payer BC, MEDICAID ==
[~2024-02-28] VITALS: Ht 195.6 cm; Wt 84.1 kg
[2024-02-28 22:24] VITALS: BP 168/102; PULSE 65; RESP 16; TEMP 98; O2SAT 98
[2024-02-28] MEDS ORDERED: CEPH-585 PO (22:36)
== END 2024-02-28 22:41 ==
LOC: ER 22:19
DX: E11.621 Type 2 diabetes mellitus with foot ulcer (principal); L97.519 Non-pressure chronic ulcer of other part of right foot with unspecified severity; K21.9 Gastro-esophageal reflux disease without esophagitis; J45.909 Unspecified asthma, uncomplicated; F20.9 Schizophrenia, unspecified; F12.90 Cannabis use, unspecified, uncomplicated; F15.90 Other stimulant use, unspecified, uncomplicated; Z88.1 Allergy status to other antibiotic agents; Z79.899 Other long term (current) drug therapy
CPT/HCPCS: 82948; 99283

== ENCOUNTER 2024-04-11 08:17 | Emergency (ER) | payer BC, MEDICAID ==
[~2024-04-11] VITALS: Ht 200.7 cm; Wt 57.3 kg
[2024-04-11 08:21] VITALS: BP 148/98; PULSE 59; RESP 14; TEMP 97.6; O2SAT 95
[2024-04-11] MEDS ORDERED: DOXY-224 PO (08:36)
[2024-04-11] MEDS: DOXYCYCLINE 100MG CAPSULE PO STA (08:44)
[2024-04-11] MEDS: TETanus/Pertussis (Acell)/Diphther VAC/PF (Tdap-Adult) 0.5ml syringe IMVAC ONE (08:45)
== END 2024-04-11 08:51 | disposition home or self-care (01) ==
LOC: ER 08:18
DX: L03.031 Cellulitis of right toe (principal); J45.909 Unspecified asthma, uncomplicated; K21.9 Gastro-esophageal reflux disease without esophagitis; F20.9 Schizophrenia, unspecified; F41.9 Anxiety disorder, unspecified; F32.A Depression, unspecified; F12.90 Cannabis use, unspecified, uncomplicated; F15.90 Other stimulant use, unspecified, uncomplicated; Z72.89 Other problems related to lifestyle; Z98.890 Other specified postprocedural states; Z88.1 Allergy status to other antibiotic agents; Z59.00 Homelessness unspecified; Z79.899 Other long term (current) drug therapy; Z56.0 Unemployment, unspecified
CPT/HCPCS: 90471; 90715; 99283

== ENCOUNTER 2024-04-16 14:09 | Emergency (ER) | payer BC, MEDICAID ==
[~2024-04-16] VITALS: Ht 195.6 cm; Wt 74.3 kg
[~2024-04-16 14:09] MED LIST changes: +DOXY-224 PO
[2024-04-16 14:10] VITALS: BP 122/69; PULSE 89; RESP 16; TEMP 98; O2SAT 98
[2024-04-16] MEDS ORDERED: ARIP20TA63 PO (14:41)
[2024-04-16] MEDS: OLANZapine 5mg rapidly disint. tablet PO ONE (15:19)
== END 2024-04-16 15:29 | disposition home or self-care (01) ==
LOC: ER 14:10
DX: F15.10 Other stimulant abuse, uncomplicated (principal); J45.909 Unspecified asthma, uncomplicated; K21.9 Gastro-esophageal reflux disease without esophagitis; F41.9 Anxiety disorder, unspecified; F32.A Depression, unspecified; F20.9 Schizophrenia, unspecified; F12.90 Cannabis use, unspecified, uncomplicated; Z56.0 Unemployment, unspecified; Z59.00 Homelessness unspecified; Z98.890 Other specified postprocedural states; Z88.1 Allergy status to other antibiotic agents; Z79.899 Other long term (current) drug therapy
CPT/HCPCS: 99281

== ENCOUNTER 2024-04-23 07:03 | Emergency (ER) | payer BC, MEDICAID ==
[~2024-04-23] VITALS: Ht 182.9 cm; Wt 81.8 kg
[~2024-04-23 07:03] MED LIST changes: -DOXY-224 PO
[2024-04-23 07:05] VITALS: BP 101/60; PULSE 90; RESP 18; O2SAT 96
[2024-04-23 13:44] VITALS: TEMP 98.9
== END 2024-04-23 13:47 | disposition left against medical advice (07) ==
LOC: ER 07:03
DX: Z04.6 Encounter for general psychiatric examination, requested by authority (principal); Z53.21 Procedure and treatment not carried out due to patient leaving prior to being seen by health care provider

== ENCOUNTER 2024-05-28 08:31 | Emergency (ER) | payer BC, MEDICAID ==
[~2024-05-28] VITALS: Ht 200.7 cm; Wt 80.7 kg
[2024-05-28] MEDS ORDERED: METH-798 PO (09:23)
[2024-05-28 09:52] VITALS: BP 132/94; PULSE 82; RESP 16; TEMP 97.8; O2SAT 94
== END 2024-05-28 09:55 | disposition home or self-care (01) ==
LOC: ER 08:32
DX: M62.838 Other muscle spasm (principal); J45.909 Unspecified asthma, uncomplicated; K21.9 Gastro-esophageal reflux disease without esophagitis; F20.9 Schizophrenia, unspecified; F41.9 Anxiety disorder, unspecified; F32.A Depression, unspecified; F12.90 Cannabis use, unspecified, uncomplicated; F15.90 Other stimulant use, unspecified, uncomplicated; Z98.890 Other specified postprocedural states; Z56.0 Unemployment, unspecified; Z59.00 Homelessness unspecified; Z72.89 Other problems related to lifestyle; Z79.899 Other long term (current) drug therapy; Z88.1 Allergy status to other antibiotic agents
CPT/HCPCS: 99283

== ENCOUNTER 2024-06-25 08:44 | Emergency (ER) | payer BC, MEDICAID ==
[~2024-06-25] VITALS: Ht 190.5 cm; Wt 96.5 kg
[~2024-06-25 08:44] MED LIST changes: +METH-798 PO
[2024-06-25 08:58] VITALS: BP 136/108; PULSE 83; RESP 18; TEMP 97.6; O2SAT 95
== END 2024-06-25 09:26 | disposition left against medical advice (07) ==
LOC: ER 08:45
DX: S90.921A Unspecified superficial injury of right foot, initial encounter (principal); Z53.21 Procedure and treatment not carried out due to patient leaving prior to being seen by health care provider; Z88.1 Allergy status to other antibiotic agents; X58.XXXA Exposure to other specified factors, initial encounter; Y93.89 Activity, other specified; Y92.89 Other specified places as the place of occurrence of the external cause; Y99.8 Other external cause status

== ENCOUNTER 2024-06-30 07:38 | Emergency (ER) | payer BC, MEDICAID ==
[~2024-06-30] VITALS: Ht 200.7 cm; Wt 75.0 kg
[2024-06-30 07:50] VITALS: BP 118/75; PULSE 73; RESP 18; TEMP 97.1; O2SAT 96
== END 2024-06-30 10:41 | disposition left against medical advice (07) ==
LOC: ER 07:38
DX: M79.671 Pain in right foot (principal); Z53.21 Procedure and treatment not carried out due to patient leaving prior to being seen by health care provider; Z88.1 Allergy status to other antibiotic agents

== ENCOUNTER 2024-07-18 12:55 | Emergency (ER) | payer BC, MEDICAID ==
[~2024-07-18] VITALS: Ht 180.3 cm; Wt 81.8 kg
[2024-07-18 12:56] VITALS: BP 137/73; PULSE 99; O2SAT 98
[2024-07-18 13:16] VITALS: RESP 18
[2024-07-18 14:00] VITALS: TEMP 98.2
== END 2024-07-18 14:02 | disposition left against medical advice (07) ==
LOC: ER 12:55
DX: F15.90 Other stimulant use, unspecified, uncomplicated (principal); F20.9 Schizophrenia, unspecified; F32.A Depression, unspecified; J45.909 Unspecified asthma, uncomplicated; Z88.0 Allergy status to penicillin
CPT/HCPCS: 99283

== ENCOUNTER 2024-07-21 05:22 | Emergency (ER) | payer BC, MEDICAID ==
[~2024-07-21] VITALS: Ht 200.7 cm; Wt 75.6 kg
[2024-07-21 05:55] LABS: BASOPHILS # (AUTO) 0.1 X10'3 (0-0.2); BASOPHILS % (AUTO) 0.7 % (0-1); EOSINOPHILS # (AUTO) 0.2 X10'3 (0-0.9); EOSINOPHILS % (AUTO) 3.3 % (0-6); HEMATOCRIT 40.3 % (42.0-52.0); HEMOGLOBIN 13.3 g/dl (14.0-17.9); LYMPHOCYTES # (AUTO) 1.4 X10'3 (1.1-4.8); LYMPHOCYTES % (AUTO) 19.8 % (21-51); MEAN CORPUSCULAR HEMOGLOBIN 29.1 PG (27.0-31.0); MEAN CORPUSCULAR VOLUME 88.2 FL (78-98); MEAN PLATELET VOLUME 6.5 FL (7.4-10.4); MONOCYTES # (AUTO) 0.8 X10'3 (0-0.9); MONOCYTES % (AUTO) 11.4 % (2-12); NEUTROPHILS # (AUTO) 4.8 X10'3 (1.8-7.7); NEUTROPHILS % (AUTO) 64.8 % (42-75); PLATELET COUNT 514 X10'3 (140-440); RED BLOOD COUNT 4.56 X10'6 (4.70-6.10); RED CELL DISTRIBUTION WIDTH 14.7 % (11.5-14.5); WHITE BLOOD COUNT 7.3 X10'3 (4.5-11.0)
[2024-07-21 06:23] LABS: ALBUMIN 3.2 G/DL (3.4-5.0); ANION GAP 7 (8-16); BLOOD UREA NITROGEN 13 MG/DL (7-18); BUN/CREATININE RATIO 14.1 (10.0-20.0); CALCIUM 9.3 MG/DL (8.5-10.1); CHLORIDE 103 MMOL/L (99-107); CREATININE 0.92 MG/DL (0.60-1.10); GLUCOSE 102 MG/DL (70-104); POTASSIUM 3.7 MMOL/L (3.5-5.1); SODIUM 140 MMOL/L (135-145); THYROID STIMULATING HORMONE 1.44 ulU/ml (0.34-4.50); TOTAL CARBON DIOXIDE 30.3 MMOL/L (24-32); eCRCL 116 ML/MIN; eGFR > 90 ML/MIN
[2024-07-21 06:26] LABS: ETHANOL < 10 MG/DL (<10)
[2024-07-21 06:54] VITALS: BP 124/95; PULSE 86; RESP 18; TEMP 97.4; O2SAT 98
== END 2024-07-21 06:59 | disposition home or self-care (01) ==
LOC: ER 05:23
DX: F15.10 Other stimulant abuse, uncomplicated (principal); Z59.00 Homelessness unspecified; R45.851 Suicidal ideations; K21.9 Gastro-esophageal reflux disease without esophagitis; F32.A Depression, unspecified; F41.9 Anxiety disorder, unspecified; J45.909 Unspecified asthma, uncomplicated; F20.9 Schizophrenia, unspecified; F12.90 Cannabis use, unspecified, uncomplicated; Z88.0 Allergy status to penicillin
CPT/HCPCS: 36415; 80048; 80320; 84443; 85025; 99283